=== PATIENT | male | born 1950 | race Caucasian/White ===

== ENCOUNTER 2017-07-28 16:55 | Emergency (ER) | payer MEDICARE, OTHER ==
[~2017-07-28] VITALS: Ht 182.9 cm; Wt 94.3 kg
[~2017-07-28 16:55] MED LIST: AMIT10 PO; AMITRIPTYLINE; ASPI81CH PO; CITA20 PO; CRUTCH2 USE; ENTRESTO 24 MG1 EACH; FISH1000 PO; FURO40 PO; Lisinopril2.5 MG PO; Lopressor 50 mg50 MG PO; METO25ER PO; MULTI FOR HER400 MCG PO; OXYACE5T PO; Prednisone20 MG PO; SPIR25 PO; Saw Palmetto80 MG PO; XARELTO15 MG PO
== END 2017-07-28 19:23 | disposition home or self-care (01) ==
LOC: ER 16:55
DX: S43.102A Unspecified dislocation of left acromioclavicular joint, initial encounter (principal); J44.9 Chronic obstructive pulmonary disease, unspecified; I48.91 Unspecified atrial fibrillation; Z88.8 Allergy status to other drugs, medicaments and biological substances; Z79.899 Other long term (current) drug therapy; Z79.82 Long term (current) use of aspirin; Z86.73 Personal history of transient ischemic attack (TIA), and cerebral infarction without residual deficits; Z87.891 Personal history of nicotine dependence; W22.8XXA Striking against or struck by other objects, initial encounter
CPT/HCPCS: 73030; 99283

== ENCOUNTER 2019-03-02 17:12 | Emergency (ER) | payer OTHER, MEDICARE ==
[~2019-03-02] VITALS: Ht 182.9 cm; Wt 96.2 kg
[2019-03-02 18:16] LABS: BASOPHILS ABSOLUTE AUTO 0.01 K/mm3 (0.00-0.23); BASOPHILS PERCENT AUTO 0 % (0-2); EOSINOPHILS ABSOLUTE AUTO 0.01 K/mm3 (0.00-0.68); EOSINOPHILS PERCENT AUTO 0 % (0-6); Hematocrit 34.7 % (37.0-53.0); Hemoglobin 11.7 g/dL (13.5-17.5); IMMATURE GRAN ABSOLUTE AUTO 0.02 K/mm3 (0.00-0.10); IMMATURE GRAN PERCENT AUTO 0 % (0-1); LYMPHOCYTES ABSOLUTE AUTO 1.09 K/mm3 (0.84-5.20); LYMPHOCYTES PERCENT AUTO 15 % (21-46); MONOCYTES ABSOLUTE AUTO 0.88 K/mm3 (0.16-1.47); MONOCYTES PERCENT AUTO 12 % (4-13); Mean Corpuscular HGB Conc 33.7 g/dL (31.5-36.5); Mean Corpuscular Volume 92 fL (80-100); Mean Platelet Volume 9.2 fL (9.1-12.4); NEUTROPHILS ABSOLUTE AUTO 5.24 K/mm3 (1.96-9.15); NEUTROPHILS PERCENT AUTO 72 % (41-73); Platelet Count 326 K/mm3 (150-400); RDW Coefficient Variation 12.2 % (11.7-14.2); RDW Standard Deviation 41.7 fL (35.1-46.3); Red Blood Cell Count 3.77 M/mm3 (4.30-5.90); White Blood Cell Count 7.25 K/mm3 (4.00-11.30)
[2019-03-02 18:31] LABS: International Normalized Ratio 1.24; Prothrombin Time Results 12.9 Sec (9.7-11.5)
[2019-03-02 18:36] LABS: Alanine Aminotransfer (ALT/SGP 29 U/L (12-78); Albumin, Blood 3.6 g/dL (3.4-5.0); Albumin/Globulin Ratio 0.9 (0.8-1.8); Alk Phos 114 U/L (50-136); Anion Gap 8 mmol/L (6-16); Aspartate Aminotrans (AST/SGOT 24 U/L (12-37); Bilirubin, Total 1.9 mg/dL (0.1-1.0); Blood Urea Nitrogen 23 mg/dL (8-24); Bun/Creatinine Ratio 20.2 (12.0-20.0); CO2, Blood 23 mmol/L (21-32); Calcium, Blood 8.2 mg/dL (8.5-10.1); Chloride, Blood 104 mmol/L (98-108); Creatinine, Blood 1.14 mg/dL (0.60-1.20); Glomerular Filtration Rate >60 (60-); Glucose, Blood 92 mg/dL (70-99); Sodium, Blood 135 mmol/L (136-145); Total Protein, Blood 7.6 g/dL (6.4-8.2)
== END 2019-03-02 19:32 | disposition home or self-care (01) ==
LOC: ER 17:12
PROVIDERS: Physician Assistant
DX: S06.9X9A Unspecified intracranial injury with loss of consciousness of unspecified duration, initial encounter (principal); S60.222A Contusion of left hand, initial encounter; S80.02XA Contusion of left knee, initial encounter; S05.12XA Contusion of eyeball and orbital tissues, left eye, initial encounter; S20.212A Contusion of left front wall of thorax, initial encounter; J44.9 Chronic obstructive pulmonary disease, unspecified; F32.9 Major depressive disorder, single episode, unspecified; I48.91 Unspecified atrial fibrillation; Z88.8 Allergy status to other drugs, medicaments and biological substances; I50.9 Heart failure, unspecified; Z79.82 Long term (current) use of aspirin; Z79.899 Other long term (current) drug therapy; Z79.01 Long term (current) use of anticoagulants; Z86.711 Personal history of pulmonary embolism; Z86.718 Personal history of other venous thrombosis and embolism; V20.4XXA Motorcycle driver injured in collision with pedestrian or animal in traffic accident, initial encounter
CPT/HCPCS: 36415; 70450; 70486; 71101; 73130; 73564; 80053; 85025; 85610; 85730; 99284-25

== ENCOUNTER 2019-07-31 14:36 | Day surgery (SDC) | payer MEDICARE, OTHER ==
[2019-07-31 16:41] LABS: Automated BF WBC Count 0.379 K/mm3 (0-999); Body Fluid WBC Count 379 /mm3 (0-999)
[2019-07-31 16:52] LABS: Albumin, Body Fluid 1.7 g/dL; Glucose, Body Fluid 102 mg/dL; Lactate Dehydrogenase, Body Fl 78 U/L; Protein, Body Fluid 3.5 g/dL
[2019-07-31 17:00] LABS: RBC Count, Body Fluid 145 /mm3 (0-0)
[2019-07-31 17:01] LABS: Color, Body Fluid Yellow (None-Yellow)
[2019-07-31 17:02] LABS: Appearance, Body Fluid Hazy (Clear)
[2019-07-31 17:23] LABS: Total Cell Count, Body Fluid 100
== END 2019-07-31 22:36 | disposition home or self-care (01) ==
LOC: US 14:36
PROVIDERS: Family Medicine
DX: J90 Pleural effusion, not elsewhere classified (principal)
CPT/HCPCS: 32555; 71045; 82042; 82945; 83615; 84157; 87070; 87205; 88108; 89051

== ENCOUNTER → 2019-08-05 | Outpatient (CLI) | payer MEDICARE, OTHER ==
[2019-08-05 17:56] LABS: Adenovirus F 40/41 Not Detected (NOT DETECT); Astrovirus Not Detected (NOT DETECT); Campylobacter Sp Not Detected (NOT DETECT); Cryptosporidium Not Detected (NOT DETECT); Cyclospora Cayetanensis Not Detected (NOT DETECT); E. Coli O157 Not Detected (NOT DETECT); Entamoeba Histolytica Not Detected (NOT DETECT); Enteroaggregative E. coli-EAEC Not Detected (NOT DETECT); Enteropathogenic E. coli-EPEC Not Detected (NOT DETECT); Enterotoxigenic E. coli-ETEC Not Detected (NOT DETECT); Giardia Lamblia Not Detected (NOT DETECT); Norovirus GI/GII Not Detected (NOT DETECT); Plesiomonas Shigelloides Not Detected (NOT DETECT); Rotavirus A Not Detected (NOT DETECT); Salmonella Sp Not Detected (NOT DETECT); Sapovirus Not Detected (NOT DETECT); Shiga Toxin-prod E. coli-STEC Not Detected (NOT DETECT); Shigella/Enteroin E. coli-EIEC Not Detected (NOT DETECT); Vibrio Cholerae Not Detected (NOT DETECT); Vibrio Sp Not Detected (NOT DETECT); Yersinia Enterocolitica Not Detected (NOT DETECT)
== END ==
LOC: LAB SHORT 12:20 → OLS 12:20
PROVIDERS: Internal Medicine Gastroenterology
DX: R19.7 Diarrhea, unspecified (principal)
CPT/HCPCS: 0097U

== ENCOUNTER 2019-08-08 09:23 | Day surgery (SDC) | payer MEDICARE, OTHER ==
[~2019-08-08] VITALS: Ht 182.9 cm; Wt 97.8 kg
--- NOTE | 2019-08-08 10:28 | NUR ---
Ambulatory in Day Surgery History, Chart, Medications and Allergies reviewed before start of procedure. Patient confirms NPO status and agrees with scheduled surgery. Patient States Post-Procedure ride home has been arranged.
--- NOTE | 2019-08-08 10:33 | NUR ---
PT IN AFIB WITH RVR, 120-140'S. DR CRUZ AND DR MARTELL AWARE. NEW ORDERS TO GIVE METOPROLOL 5MG IVP X1 THEN REASCESS. GOOD RELIEF WITH METROPROLOL IVP AND BOTH DR'S AGREE TO PROCEED.
--- NOTE | 2019-08-08 10:42 | NUR ---
08/08/19 1042 Shannan Crook History, Chart, Medications and Allergies reviewed before start of procedure.MAC CASE WITH DR. MARTELL. SEE ANETHESIA RECORD FOR CARE
--- NOTE | 2019-08-08 12:10 | NUR ---
Discharge instructions reviewed with patient. Patient verbalizes understanding. Copy given to patient to take home. Discharged via wheelchair to private car for ride home.
== END 2019-08-08 23:45 | disposition home or self-care (01) ==
LOC: ORSCMMR 09:23 → ORD 10:30 → ORSCMMR 10:30
PROVIDERS: Internal Medicine Gastroenterology
PROC: 0DBE8ZX Excision of Large Intestine, Via Natural or Artificial Opening Endoscopic, Diagnostic (ICD-10-PCS; principal; 2019-08-08 10:30)
PROC: 0DB98ZX Excision of Duodenum, Via Natural or Artificial Opening Endoscopic, Diagnostic (ICD-10-PCS; principal; 2019-08-08 10:30)
PROC: 0DB78ZX Excision of Stomach, Pylorus, Via Natural or Artificial Opening Endoscopic, Diagnostic (ICD-10-PCS; principal; 2019-08-08 10:30)
DX: K92.1 Melena (principal); R19.7 Diarrhea, unspecified; K29.80 Duodenitis without bleeding; K29.70 Gastritis, unspecified, without bleeding; K57.30 Diverticulosis of large intestine without perforation or abscess without bleeding; I10 Essential (primary) hypertension; I25.2 Old myocardial infarction; Z79.899 Other long term (current) drug therapy
CPT/HCPCS: 88305; 88342; J2370; J2405; J2704; J7120

== ENCOUNTER 2019-09-23 15:27 | Inpatient (IN) | payer MEDICARE, OTHER ==
[~2019-09-23] VITALS: Ht 182.9 cm; Wt 121.5 kg
[~2019-09-23 15:27] MED LIST changes: -ENTRESTO 24 MG1 EACH; +ENTRESTO 24 MG1 EACH PO; +FURO20 PO; -FURO40 PO
[2019-09-23 16:07] LABS: BASOPHILS ABSOLUTE AUTO 0.02 K/mm3 (0.00-0.23); BASOPHILS PERCENT AUTO 0 % (0-2); EOSINOPHILS ABSOLUTE AUTO 0.07 K/mm3 (0.00-0.68); EOSINOPHILS PERCENT AUTO 1 % (0-6); Hematocrit 41.1 % (37.0-53.0); IMMATURE GRAN ABSOLUTE AUTO 0.01 K/mm3 (0.00-0.10); IMMATURE GRAN PERCENT AUTO 0 % (0-1); LYMPHOCYTES ABSOLUTE AUTO 0.88 K/mm3 (0.84-5.20); LYMPHOCYTES PERCENT AUTO 16 % (21-46); MONOCYTES ABSOLUTE AUTO 0.55 K/mm3 (0.16-1.47); MONOCYTES PERCENT AUTO 10 % (4-13); Mean Corpuscular HGB 30.3 pg (26.0-34.0); Mean Corpuscular HGB Conc 31.6 g/dL (31.5-36.5); Mean Corpuscular Volume 96 fL (80-100); Mean Platelet Volume 10.3 fL (9.1-12.4); NEUTROPHILS ABSOLUTE AUTO 3.87 K/mm3 (1.96-9.15); NEUTROPHILS PERCENT AUTO 72 % (41-73); Platelet Count 259 K/mm3 (150-400); RDW Coefficient Variation 16.2 % (11.7-14.2); RDW Standard Deviation 57.2 fL (35.1-46.3); Red Blood Cell Count 4.29 M/mm3 (4.30-5.90)
[2019-09-23 16:27] LABS: Albumin, Blood 3.2 g/dL (3.4-5.0); Albumin/Globulin Ratio 0.6 (0.8-1.8); Bilirubin, Total 1.5 mg/dL (0.1-1.0); Bun/Creatinine Ratio 22.4 (12.0-20.0); Calcium, Blood 8.4 mg/dL (8.5-10.1); Creatinine, Blood 2.14 mg/dL (0.60-1.20); Globulin, Blood 5.4 g/dL (2.2-4.0); Potassium, Blood 4.1 mmol/L (3.5-5.5); Total Protein, Blood 8.6 g/dL (6.4-8.2); Troponin I 0.017 ng/mL (0.000-0.040)
[2019-09-23] MEDS ORDERED: ATOR10 PO (17:51)
--- NOTE | 2019-09-23 18:53 | NUR ---
ADMISSION PT TO BE ADMITTED TO ICU 14. CHART REVIEWED. ROOM SET UP FOR PATIENT. WILL GIVE REPORT FROM CHART TO ONCOMING RN TO CALL ER FOR REPORT ONCE AVAILABLE. CAREER TECHNICAL SUPERVISOR CARING FOR PATIENT AWARE AND AGREEABLE.
--- NOTE | 2019-09-23 19:37 | NUR ---
PT ARRIVES TO ICU 14 VIA GURNEY FROM ER, ADIMT FOR A-FIB WITH RVR, CELLULITIS, CHF EXACERBATION AND HYPOTENSION. PT IS ALERT AND ORIENTED X 3, SPEAKING IN FULL SENTENCES, DENIES DYSPNEA/SOB, DENIES CP/PRESSURE, DENIES DIZZINESS/VERTIGO AT THIS TIME WELL OVER THE LAST WEEK OTHER THAN 1 EPISODE AT WHICH TIME, HE WAS GETTING OUT OF A HOT SHOWER. HE ADMITS TO 6/10 PAIN TO BILATERAL LOWER EXTREMITIES THAT IS A BURNING/STINGING PAIN WITH AN ONSET 1-2 WEEKS AGO WHEN SKIN BLISTERS OPENED, PAIN IS REPORTED TO BE EXACERBATED BY "ANYTHING TOUCHING" PT'S LEGS. RESP RATE IS NOTED LOW 20-30S, LUNGS ARE CLEAR THROUGHOUT WITH DIM LUNG SOUNDS NOTED TO RIGHT BASE, SATS ARE MAINTAINING ON ROOM AIR. AFIB ON MONITOR, RATE 120-130S AT THIS TIME, PT'S PRESSURE IMPROVED DURING TRANSPORT TO 90S SYSTOLIC PER WAREHOUSE LOADER, HE IS NOTED TO CONTINUE TO BE HYPOTENSIVE AFTER TRANSFER TO BED, HOSPITALIST KYLE IS AT BEDSIDE FOR DISCUSSION OF PLAN OF CARE FOR HYPOTENSION IN THE SETTING OF FLUID OVERLOAD AND AFIB WITH RVR. NORMOACTIVE BOWEL TONES ARE NOTED, ABD SOFT, NO GRIMACING/GUARDING WITH PALPATION. BILATERAL LOWER EXTREMITIES ARE RED AND HOT TO THE TOUCH FROM ANKLES TO JUST BELOW KNEES BILAT (SEE PHOTOS) WITH 2 + EDEMA UP TO LEVEL OF PT'S LOW ABD. PLAN PER KYLE IS TO ADMINISTER LOPRESSOR 2.5 MG SLOW IV PUSH AND MONITOR BP CLOSELY, IF NO IMPROVEMENT IN BP, THEN ADMIN ALBUMIN AND MIDODRINE AND HOLD ON LASIX ADMINISTRATION UNTIL 30 MINUTES AFTER COMPLETION OF ALBUMIN INFUSION.
--- NOTE | 2019-09-23 20:08 | NUR ---
LOPRESSOR 2.5 MG DILUTED IN 20 ML NORMAL SALINE AND PUSHED OVER 30 MINUTES WHILE MONITORING BLOOD PRESSURE EVERY 2 MINUTES THROUGHOUT ADMINISTRATION. PT PRESSURE MAINTAINS THROUGHOUT HOWEVER NO IMPROVEMENT IS NOTED WITH IMPROVED RATE CONTROL. PHARMACY CALLED FOR ALBUMIN WILL ADMIN SOON IT ARRIVES FROM PHARMACY. MIDODRINE ADMIN. WILL MONITOR.
--- NOTE | 2019-09-23 22:10 | NUR ---
ALBUMIN INFUSION COMPLETE, HOSPITALIST KYLE REMAINS IN UNIT AND UPDATED REGARDING PT'S VITAL SIGNS, MANUAL BP OBTAINED FOR CONFIRMATION OF HYPOTENSION. PT'S RADIAL PULSES CONT FULL AND EQUAL BILAT, CONTINUES TO REMAIN ALERT AND ORIENTED AND DENIES DIZZINESS/VERTIGO, STATES THAT HE FEELS PRETTY GOOD AT THIS TIME.
--- NOTE | 2019-09-23 22:40 | NUR ---
KYLE UPDATED REGARDING CONTINUED VITAL SIGNS, LASIX ADMIN SLOW IV PUSH, PT TOLERATED WELL, NO IMPROVEMENT IN BP IS NOTED.
--- NOTE | 2019-09-23 23:00 | NUR ---
DISCUSSED CONCERN REGARDING PT'S HYPOTENSION AND LACK OF URINE OUTPUT OF THIS TIME WITH HOSPITALIST KYLE, ORDER FOR CARPIO OBTAINED. 14 [place] CARPIO INSERTED USING STERILE TECHNIQUE, UA SENT, 120 ML CLOUDY COLTON URINE DRAINED IN UROMETER, WILL MONITOR.
[2019-09-23 23:36] LABS: Source, Urine Catheter
[2019-09-23 23:37] LABS: Bilirubin, Urine Neg (Neg); Blood, Urine Neg (Neg); Glucose Qualitative, Urine Neg (Neg); Ketones, Urine Neg (Neg); Leukocyte Esterase, Urine 1+ (Neg); Nitrite, Urine Neg (Neg); Protein, Urine 3+ (Neg); Urobilinogen, Urine NORM (Normal)
[2019-09-23 23:46] LABS: Appearance, Urine Hazy (Clear); Color, Urine Amber (P-Yellow)
[2019-09-23 23:55] LABS: Amorphous Light (0-Heavy); Bacteria Many /hpf; Hyaline Casts 25-50 /lpf (0-2); Mucus Light (0-Heavy); Red Blood Cells, Urine 0-2 /hpf (0-2); Squamous Epithelial Cells Not Seen /hpf (Few)
--- NOTE | 2019-09-24 00:10 | NUR ---
PT C/O INCREASED DISCOMFORT FROM CARPIO CATHETER, STATES THAT IT FEELS "LIKE I'M TRYING TO PUSH IT OUT" BALLOON DEFLATED AND PT REPORTS RELIEF, PT REQUESTS CARPIO CATH BE REMOVED AND REPLACED. ORDERS OBTAINED FOR UROJET LIDOCAINE. CARPIO REPLACED WITH 14 [place] COUDE CATHETER USING UROJET LIDOCAINE, PT TOLERATED WELL. WILL MONITOR.
[2019-09-24 01:13] LABS: Hematocrit 40.5 % (37.0-53.0); Hemoglobin 12.8 g/dL (13.5-17.5); Mean Corpuscular HGB 30.3 pg (26.0-34.0); Mean Corpuscular HGB Conc 31.6 g/dL (31.5-36.5); Mean Corpuscular Volume 96 fL (80-100); Mean Platelet Volume 10.1 fL (9.1-12.4); Platelet Count 244 K/mm3 (150-400); RDW Coefficient Variation 16.2 % (11.7-14.2); RDW Standard Deviation 57.4 fL (35.1-46.3); Red Blood Cell Count 4.23 M/mm3 (4.30-5.90); White Blood Cell Count 5.36 K/mm3 (4.00-11.30)
[2019-09-24 01:33] LABS: Albumin, Blood 3.3 g/dL (3.4-5.0); Albumin/Globulin Ratio 0.6 (0.8-1.8); Bun/Creatinine Ratio 22.1 (12.0-20.0); Calcium, Blood 8.6 mg/dL (8.5-10.1); Creatinine, Blood 2.31 mg/dL (0.60-1.20); Globulin, Blood 5.3 g/dL (2.2-4.0); Total Protein, Blood 8.6 g/dL (6.4-8.2); Troponin I 0.024 ng/mL (0.000-0.040)
--- NOTE | 2019-09-24 05:00 | NUR ---
SPOKE WITH DR BAIRES REGARDING PT'S URINE OUTPUT, SYSTOLIC PRESSURE TRENDS WELL MAP. PT CONTINUES ALERT AND ORIENTED AND DENYING DIZZINESS/VERTIGO, CP/PRESSURE, SOB/DYSPNEA AND MAINTAINING SATS ON ROOM AIR WITHOUT VISIBLE INCREASED WORK OF BREATHING. ORDERS OBTAINED FOR NORMAL SALINE AT 75 ML/HR X 500 ML.
--- NOTE | 2019-09-24 08:00 | NUR ---
ASSUMED CARE RECIEVED REPORT FROM PRATEEK JIMENEZ. PT IS ALERT AND ORIENTED TO SELF, SITUATION, PLACE, AND TIME. HE IS IN BED, DENIES CP AND SOB. HE IS ON ROOM AIR, SAT'ING MID 90'S. PT IS IN AFIB RVR, RATE IS 120-140. DENIES COUGH THROUGHOUT NIGHT, AND IS AFEBRILE. BED LOW AND LOCKED. CALL LIGHT WITHIN REACH.
--- NOTE | 2019-09-24 13:48 | NUR ---
CALVIN/UPDATE JEB IN ROOM AND INTERVIEWED/ASSESSED PATIENT. CARDIOVERSION SCHEDULED AT 1400, PT UNDERSTANDING OF RISKS AND BENEFITS - CONSENTED TO PROCEDURE. LEVOPHED AND SEDATION WILL BE AVAILABLE ON STANDBY.
--- NOTE | 2019-09-24 17:28 | NUR ---
Echocardiogram using 0.60ml of Definity contrast performed.
[2019-09-24 17:42] LABS: International Normalized Ratio 1.67; Prothrombin Time Results 17.4 Sec (9.7-11.5)
--- NOTE | 2019-09-24 18:04 | NUR ---
CARDIOVERSION/HYPOTENSION/SHIFT SUMMARY CARDIOVERSION/HYPOTENSION TODAY PT HAS BEEN HAVING LOW BLOOD PRESSURES, BUT MAP HAS MAINLY BEEN 60+ WITH A FEW IN THE UPPER 50'S. HE ALSO HAS BEEN IN AFIB FOR A FEW MONTHS NOW AND HAS BEEN PUT ON XARLTO. RATE IN THE 120-140, MAINLY 130'S. PT IS OLIGURIC (~120-160ML TODAY), WITH INCREASING CREATININE AND BUN. MENTATION HAS HAD NO CHANGES, AND HE HAS BEEN A&O TO PERSON, PLACE, TIME, AND SITUATION. DR RUSS SAW PT TODAY AND PLANNED TO DO A CARDIOVERSION AT 1400 TO IMPROVE CARDIAC OUTPUT/BLOOD PRESSURE. THE PROCEDURE STARTED AT 1410, LEVOPHED WAS TURNED ON TO 5MCG/MIN AT 1413 TO PROVIDE SUPPORT DURING CONSCIOUS SEDATION. SEE FLOWSHEET FOR TITRATIONS AND VS FOR ASSOCIATED BP'S. A TOTAL OF 2.5MG VERSED, 25MCG FENT, AND 6 ML OF LEVO WERE GIVEN FOR THE PROCEDURE. AT 1429 THE PT WAS CARDIOVERTED INTO A SINUS RHYTHM WITH ECTOPY WITH 200J. LEVO WAS PUT ON STANDBY AT 1432. RATE BACOME STABLE IN THE 90'S. THE CAT BREEDER CAME IN AT 1445~; AND LEVO WAS TURNED BACK ON AT 1457 DUE TO THE MAP < 65 DESPITE THE RATE CONTROL. AT BEDSIDE JEB WAS CONCERNED THERE MAY BE SOMETHING MORE THAN JUST THE AFIB RVR STRESSING THE HEART OUT. POSSIBLY RELATED TO THE LEG WOUNDS, OR A SYSTEMIC INFLAMM. RESPONSE OF SOME SORT. BRODERICK BELIEVES ITS NOT RELATED TO LEG WOUNDS/SIRS/SEPSIS, AND HAS ORDERED DOBUTAMINE, BUT JEB REQUESTS THAT WE HOLD IT UNLESS WE ABSOLUTELY NEED TO BECAUSE OF THE ARRHYTHMOGENICITY OF THE MEDICATION AND THE FACT HE IS HAVING TONS OF ECTOPY AND TRYING TO GO BACK INTO AFIB. HE WAS LOADED UP ON AMIO PO AND CURRENTLY REMAINS IN SINUS RHYTHM WITH ECTOPY. LEVOPHED IS ON 4MCG/MIN. EXTREMETIES ARE WARM, DOPPABLE PEDAL PULSES (VERY FAINT ON PALPATION), FEET WERE MUCH MORE RED THIS MORNING, BUT THE ERYTHEMA HAS RECEEDED AND IS PRIMARILY JUST AROUND THE WOUNDS ON THE SHINS. RADIAL PULSES ARE PALPABLE. FEET ARE DRY, BUT WOUNDS HAVE TISSUE SLOUGHING OFF. PT HAS DIFFICULTY WHEN VOIDING, DESPITE HAVING A CARPIO CATHETER. HE FEELS PRESSURE, AND LOOKS TO BE IN PAIN. A RENAL/BLADDER US WAS PERFORMED. RESULTS PENDING. PT REMAINS ALERT AND ORIENTED. BED IS LOW AND LOCKED. CALL LIGHT WITHIN REACH. HE IS AFEBRILE, WITHOUT A COUGH, AND HAS DENIED CP, SOB, NAUSEA, AND ANY DISCOMFORT (ASIDE WHEN PEEING, AND HIS LEG WOUNDS).
--- NOTE | 2019-09-24 20:00 | NUR ---
ASSUMPTION OF CARE: PT A&O, AWAKE DURING SHIFT REPORT. PT HAS BEEN HYPOTENSIVE WITH BP IN THE 60-80S. WAS IN AFIB W/RVR-WAS CARDIOVERTED DURING DAYSHIFT. SBP IS CURRENTLY IN THE 80-100S, HR IN THE 90S. IN SR. LUNG SOUNDS ARE CLEAR AND DIM IN BASES. SPO2 >90% ON RA. POWERGLIDE IN PLACE IN DAVID. PIV IN LAC. CARPIO IN PLACE DRAINING MINIMAL AMOUNT OF DARK COLTON URINE. LEVOPHED IS CURRENTLY INF AT 4MCG. HEPARIN INFUSING AT 13U/KG (DOSING WT 89 KG). PT HAS WOUNDS TO BILAT LES. OPEN ULCERATIONS, OOZING SANGIOUNESS FLUID-CURRENTLY COVERED WITH PINK MEPILEX. BLE ARE A REDDISH COLOR. PEDAL PULSES ARE PALPABLE BUT FAINT. PT COMPLAINS OF SLIGHT LE PAIN. BED IN LOWEST POSITION, CALL LIGHT IN HAND, WILL CONTINUE TO MONITOR
[2019-09-25 03:56] LABS: BASOPHILS ABSOLUTE AUTO 0.02 K/mm3 (0.00-0.23); BASOPHILS PERCENT AUTO 0 % (0-2); EOSINOPHILS ABSOLUTE AUTO 0.02 K/mm3 (0.00-0.68); EOSINOPHILS PERCENT AUTO 0 % (0-6); Hematocrit 39.5 % (37.0-53.0); Hemoglobin 12.5 g/dL (13.5-17.5); IMMATURE GRAN ABSOLUTE AUTO 0.01 K/mm3 (0.00-0.10); IMMATURE GRAN PERCENT AUTO 0 % (0-1); LYMPHOCYTES ABSOLUTE AUTO 0.84 K/mm3 (0.84-5.20); LYMPHOCYTES PERCENT AUTO 13 % (21-46); MONOCYTES ABSOLUTE AUTO 0.81 K/mm3 (0.16-1.47); MONOCYTES PERCENT AUTO 12 % (4-13); Mean Corpuscular HGB 30.2 pg (26.0-34.0); Mean Corpuscular HGB Conc 31.6 g/dL (31.5-36.5); Mean Corpuscular Volume 95 fL (80-100); Mean Platelet Volume 10.2 fL (9.1-12.4); NEUTROPHILS ABSOLUTE AUTO 5.04 K/mm3 (1.96-9.15); NEUTROPHILS PERCENT AUTO 75 % (41-73); Platelet Count 256 K/mm3 (150-400); RDW Coefficient Variation 16.1 % (11.7-14.2); RDW Standard Deviation 55.9 fL (35.1-46.3); Red Blood Cell Count 4.14 M/mm3 (4.30-5.90); White Blood Cell Count 6.74 K/mm3 (4.00-11.30)
[2019-09-25 04:19] LABS: Alanine Aminotransfer (ALT/SGP 12 U/L (12-78); Albumin, Blood 3.1 g/dL (3.4-5.0); Albumin/Globulin Ratio 0.7 (0.8-1.8); Alk Phos 162 U/L (50-136); Anion Gap 10 mmol/L (6-16); Aspartate Aminotrans (AST/SGOT 18 U/L (12-37); Bilirubin, Total 1.8 mg/dL (0.1-1.0); Blood Urea Nitrogen 55 mg/dL (8-24); Bun/Creatinine Ratio 23.8 (12.0-20.0); CO2, Blood 16 mmol/L (21-32); Calcium, Blood 8.5 mg/dL (8.5-10.1); Chloride, Blood 112 mmol/L (98-108); Creatinine, Blood 2.31 mg/dL (0.60-1.20); Globulin, Blood 4.7 g/dL (2.2-4.0); Glomerular Filtration Rate 30 (60-); Glucose, Blood 89 mg/dL (70-99); Potassium, Blood 5.1 mmol/L (3.5-5.5); Prostate Specific Antigen 0.661 ng/mL (0.000-4.000); Sodium, Blood 138 mmol/L (136-145); Total Protein, Blood 7.8 g/dL (6.4-8.2)
--- NOTE | 2019-09-25 06:28 | NUR ---
SUMMARY: PT RESTED COMFORTABLY MAJORITY OF NIGHT. SBP IN THE 90S-110S, TACHY IN THE 100S. SPO2 >90% ON RA. LUNG SOUNDS CLEAR. POWERGLIDE IN DAVID AND PIV IN LAC. HEPARIN INFUSING AT 14U/KG. DOSING WT IS 89KG. CARPIO IN PLACE. PT HAD A LITTLE MORE URINE OUTPUT THEN DAYSHIFT. URINE REMAINS DARK COLTON COLOR. WILL PASS REPORT TO ONCOMING SHIFT
--- NOTE | 2019-09-25 09:40 | NUR ---
Received report from Laith CHANDRA. patient was awake in bed and able to communicate his needs. He is on RA and sats 94%. Dr Live in and did AM EKG for her and she wrote orders for new meds that were given with 0900 meds and he tolerated well with sips of water. Medicated for pain for am LE dressing changes and cleaning. He Has 18ga PowerGlide in DAVID and is recieving Levophed at 4 mcg/min and NS TKO. He also has 20 ga LAC IV dressing intact and site WNL's and is infusing Heparin at 14 units/kg/hr. He has Thora today and awaiting scheduled time.
--- NOTE | 2019-09-25 11:30 | NUR ---
Patient has been resting. Systolic dropped to the 80's after starting new meds and needed to increase to 7mcg/min for systolic now 100's. He has been tolerating meds with sips of water. Dr. Live call to check on patient and updated her on increase of Levo.
--- NOTE | 2019-09-25 13:36 | NUR ---
No significant changes with patient called and re-ordered thora as there was a confusion on whom was ordering. VSS, See EMR. Levophed at 7mcg/min, Heparin at 14units/kg/hr.
--- NOTE | 2019-09-25 18:38 | NUR ---
Patient has been resting in bed most of sday. He states he cant believe how weak he is just from laying around. He has tolerated a heart healthy dinner. His thira was done by [facility] and samples sent to lab and approx. 1000ml off. He tolerates meds with water. Leg dressings changes this am. Heparin running at 15 units/kg/hr, Levophed at 7 mcg/min, and Ancef at 100ml/hr. Levophed remains on while transitioning new meds Hydralazine and imdur at small doses.
[2019-09-25 18:43] LABS: Automated BF WBC Count 0.168 K/mm3 (0-999); Body Fluid WBC Count 168 /mm3 (0-999)
[2019-09-25 18:48] LABS: pH, Body Fluid 7.5
[2019-09-25 18:55] LABS: Albumin, Body Fluid 1.3 g/dL; Glucose, Body Fluid 95 mg/dL; Lactate Dehydrogenase, Body Fl 70 U/L; Protein, Body Fluid 2.8 g/dL
[2019-09-25 19:39] LABS: RBC Count, Body Fluid 258 /mm3 (0-0)
[2019-09-25 19:45] LABS: Total Cell Count, Body Fluid 100
[2019-09-25 19:46] LABS: Color, Body Fluid Yellow (None-Yellow)
[2019-09-25 19:47] LABS: Appearance, Body Fluid Clear (Clear)
--- NOTE | 2019-09-25 20:00 | NUR ---
ASSUMPTION OF CARE: PT A&0. BP ARE SOFT, SBP IN THE 80S-90S. HR IN THE 90S. LUNG SOUNDS CLEAR. SPO2 >90% ON RA. PT HAS PIV IN LAC AND POWERGLIDE IN DAVID. LAC IV INFUSING WITH LEVOPHED AT 7MCG AND POWERGLIDE INFUSING WITH HEPARIN AT 17U/KG. CARPIO IN PLACE DRAINING DARK COLTON URINE. BLE SLIGHTLY RED. ULCERATED WOUNDS ARE COVERED WITH MEPILEX AND ARE C/D/I. BED IN LOWEST POSITION, CALL LIGHT IN REACH. WILL CONTINUE TO MONITOR
--- NOTE | 2019-09-25 22:00 | NUR ---
RAC IV PULLED THAT WAS INFUSING WITH LEVOPHED. CALL PLACED TO DR. VILLAFANA RE STARTING A LINE. D/T HEPARIN INFUSION/BOLUS DR VILLAFANA UNABLE TO PLACE LINE. WILL REASSESS LATER ON TOMORROW. IV IN DAVID PLACED BY PRATEEK ROCKWELL. PATENT AND INFUSING WITH LEVOPHED. OK PER DR. VILLAFANA
[2019-09-26 01:42] LABS: BASOPHILS ABSOLUTE AUTO 0.03 K/mm3 (0.00-0.23); BASOPHILS PERCENT AUTO 0 % (0-2); EOSINOPHILS ABSOLUTE AUTO 0.07 K/mm3 (0.00-0.68); EOSINOPHILS PERCENT AUTO 1 % (0-6); Hematocrit 39.1 % (37.0-53.0); Hemoglobin 12.6 g/dL (13.5-17.5); IMMATURE GRAN ABSOLUTE AUTO 0.02 K/mm3 (0.00-0.10); IMMATURE GRAN PERCENT AUTO 0 % (0-1); LYMPHOCYTES ABSOLUTE AUTO 0.84 K/mm3 (0.84-5.20); LYMPHOCYTES PERCENT AUTO 12 % (21-46); MONOCYTES ABSOLUTE AUTO 0.73 K/mm3 (0.16-1.47); MONOCYTES PERCENT AUTO 11 % (4-13); Mean Corpuscular HGB 30.2 pg (26.0-34.0); Mean Corpuscular HGB Conc 32.2 g/dL (31.5-36.5); Mean Corpuscular Volume 94 fL (80-100); NEUTROPHILS ABSOLUTE AUTO 5.16 K/mm3 (1.96-9.15); NEUTROPHILS PERCENT AUTO 75 % (41-73); Platelet Count 265 K/mm3 (150-400); RDW Coefficient Variation 15.9 % (11.7-14.2); RDW Standard Deviation 54.8 fL (35.1-46.3); Red Blood Cell Count 4.17 M/mm3 (4.30-5.90); White Blood Cell Count 6.85 K/mm3 (4.00-11.30)
[2019-09-26 01:59] LABS: Albumin, Blood 2.9 g/dL (3.4-5.0); Albumin/Globulin Ratio 0.6 (0.8-1.8); Bilirubin, Total 1.2 mg/dL (0.1-1.0); Bun/Creatinine Ratio 25.5 (12.0-20.0); Calcium, Blood 8.6 mg/dL (8.5-10.1); Creatinine, Blood 2.08 mg/dL (0.60-1.20); Globulin, Blood 4.5 g/dL (2.2-4.0); Magnesium, Blood 1.9 mg/dL (1.6-2.4); Potassium, Blood 4.8 mmol/L (3.5-5.5); Total Protein, Blood 7.4 g/dL (6.4-8.2)
--- NOTE | 2019-09-26 06:39 | NUR ---
SHIFT SUMMARY: PT A&O. SLEPT T/O SHIFT. SOME COMPLAINTS OF BLE PAIN. LUNG SOUNDS ARE CLEAR. SPO2 >90% ON RA. PT DID REQUIRE 1L NC WHILE SLEEPING D/T DESAT TO 89%. PT HAS REMAINED HYPOTENSIVE WITH SBP 90-100S. HR IN THE 90S. PT HAD A RUN OF VTACH AT 0420 AM. PT CURRENTLY BACK IN SR WITH OCC PVCS. CARPIO IN PLACE WITH ABOUT 250SMLS OF DARK YELLOW URINE OUT. BLE HAVING WEEPING ULCERS. DRESSING IS C/D/I. PG IN DAVID INFUSING WITH HEPARIN AT 16U/KG. DOSING WT IS 89KG. PIV IN SALINAS IS INFUSING WITH LEVOPHED AT 5MCG. PT DID NOT HAVE ANY COMPLAINTS T/O NIGHT. WILL PASS REPORT TO ONCOMING SHIFT
--- NOTE | 2019-09-26 08:45 | NUR ---
AM NOTE... ASSUMED CARE OF PT APROX 0700. PT IS A&Ox4. PT WAS HYPOTENSIVE AT 79/65, LEVOPHED AT 4, THIS WAS INCREASED TO 5, LEVOPHED IS RUNNING PERIPHERALLY INTO THE LEFT FOREARM, PT'S PIV IN THE LEFT FOREARM IS RUNNING WELL WITH GOOD BLOOD RETURN, WILL CONTINUE TO MONITOR. PT HAS TOLERATED THIS WELL. HEPARIN GTT RUNNING PER ORDERS AT 89KG, 16U/KG/HR. PT IS IN SR W/PACS IN THE 80'S-100'S. L/S CLEAR T/O PT IS ON RA. BLE ARE RED WITH DRESSINGS INTACT AT THIS TIME. PT CURRENTLY DENIES ANY CHEST PAIN/PRESSURE N/V OR SOB. CALL LIGHT IN REACH WILL CONTINUE TO MONITOR.
--- NOTE | 2019-09-26 14:45 | NUR ---
PHYSICIAN NOTIFICATION- PT HYPOTENSIVE, DOBUTAMINE AT 2.5 MCG/KG/MIN, INCREASING LEVOPHED FOR SBP BUT 60-70'S. PT AWAKE, ALERT, SKIN W/D, COLOR FEET DARKER, DENIES ANY COMPLAINTS. NO PAIN OR SOB. UO MINIMAL. NOTIFIED DR. RUSS OF PT'S STATUS. DOBUTAMINE TO INCREASE TO 5 MCG/KG/MIN, INCREASE LEVOPHED NEEDED.
--- NOTE | 2019-09-26 15:19 | NUR ---
PT UDATE... APROX 1300 CARDIOLOGY CALLED TO CHECK ON THE PT'S CURRENT BP. PT IS LEVOPHED AT 6 WITH SBP 70'S-80'S. PROVIDER ORDER DOBUTAMINE TO START AT 2.5. ORDERS WERE PLACE. PT WAS UPDATED ON THE PLAN OF CARE. DOBUTAMINE WAS STARTED AT 2.5 PT'S BP DROPPED INTO THE SBP 60'S-70'S. PROVIDER WAS NOTIFIED AGAIN NEW ORDERS TO INCREASE DOBUTAMINE TO 5 WERE GIVEN. LEVOPHED IS CURRENTLY AT 12. PT IS AWAKE AND ALERT, RR EVEN AND UNLABORED IN THE 20'S. L/S CLEAR T/O DIM IN THE BASES. WILL CONTINUE TO MONITOR.
--- NOTE | 2019-09-26 15:30 | NUR ---
PHYSICIAN NOTIFY- UPDATE TO DR. VILLAFANA REGARDING PT STATUS, ARTERIAL LINE REQUEST. SPOKE WITH DR. RUSS. INCREASING LEVOPHED TO 16 MCG/MIN-SBP 86 NOW. NEURO UNCHANGED. BLADDER SCAN DONE-URINE PRESENT. PLANS FOR DR. LOUIS TO PLACE RADIAL LINE
--- NOTE | 2019-09-26 17:32 | NUR ---
PT AWAKE, ALERT, COOPERATIVE. DENIES ANY PAIN OR SOB. SBP 90'S VIA RIGHT RADIAL TIANA. LEVOPHED TITRATING DOWN-12 MCG/MIN NOW. DOBUTAMINE AT 5 MCG/KG/MIN. UO REMAINS LOW-ABDOMEN, TIRSO AREA SWOLLEN, EDEMATOUS. CARPIO IRRIGATED WITH RETURN OF IRRIGANT, URINE YELLOW, SCANT SEDIMENT. RIGHT PICC-SITE OOZING, COBAN APPLIED. FEET REDDENED, DRSGS INTACT. DENIES ANY PAIN IN LEGS. REPOSITIONED, ABLE TO ASSIST WITH TURNING.
--- NOTE | 2019-09-26 18:14 | NUR ---
SHIFT SUMMARY... ART LINE WAS PLACED IN THE PT TODAY, ART LINE BP RESULTS WERE THE SAME THE BP CUFF RESULTS. PT IS ON DOBUTAMINE AT 5 AND LEVOPHED AT 14 WITH SBP IN THE 80'S. PT TOLERATED THE PROCEDURE WELL. PT IS IN SR W/PACS IN THE 90'S. CARPIO IS PATENT AND DRAINING TO GRAVITY CLOUDY YELLOW URINE. TOTAL OUTPUT TODAY WAS 205MLS. HEPARIN GTT RUNNING PER ORDERS AT 89KG DOSE WT, 16U/KG/HR AT 28.5MLS/HR. PT HAS BEEN AWAKE AND ALERT T/O SHIFT AND IN GOOD SPIRITS. CALL LIGHT IN REACH WILL CONTINUE TO MONITOR UNTIL REPORT IS GIVEN TO ONCOMING RN.
--- NOTE | 2019-09-26 18:47 | NUR ---
HEARTRATE 90-100'S, CARDIZEM OFF.
--- NOTE | 2019-09-26 19:54 | NUR ---
ASSUMPTION OF CARE: PT IS AWAKE AT THIS TIME AND TALKING ON THE PHONE. IS A&O. IN SR WITH OCC PACS AND PVCS. HYPOTENSIVE ON LEVOPHED AT 14MCG, DOBUTAMINE AT 5MCG. GOAL IS TO KEEP SBP >85. ON RA, SPO2 >90%. R RADIAL ART LINE IS SUTURED IN PLACE AND WRAPPED WITH COBAN. DRESSING IS C/D/I. PULSE OX MONITOR PLACED ON R POINTER FINGER. CAP REFILL TO R THUMB <3SEC, R HAND IS WARM AND PINK TO THE TOUCH, AND PT HAS GOOD SENSATION. PICC LINE TO DAVID. SITE IS A LITTLE LEAKY BUT DRESSING IS STILL INTACT. ALONG WITH LEVOPHED AND DOBUTAMINE INFUSING, PT ALSO HAS NS AT TKO AND HEPARIN AT 16UNITS. DOSING WEIGHT FOR HEPARIN IN 89KG. DOSING WEIGHT FOR DOBUTAMINE IS 105KG. PT HAS CARPIO IN PLACE. STILL NOT MUCH OUTPUT ABOUT 200MLS DURING DAYSHIFT. HOWEVER, URINE IS MEDICAID ANALYST IN COLOR. BLE REDDISH IN COLOR. DRESSINGS TO LEG ULCERATIONS IS C/D/I. WILL CONTINUE TO MONITOR. BED IS IN LOWEST POSITION. CALL LIGHT IN REACH.
--- NOTE | 2019-09-26 21:36 | NUR ---
DR. RUSS NOTIFIED DR. RUSS OF PT'S STATUS; THAT LEVOPHED IS AT 15MCG/MIN AND THAT DOBUTAMINE IS AT 5MCG/KG/MIN AND THAT BP IS 80'S/50'S. DR. RUSS STATED THAT SHE WOULD D/C THE HYDRALAZINE AND THE IMDUR. SHE WANTS THE DOBUTAMINE INCREASED TO 7.5MCG/KG/MIN AND TO NOT TITRATE IT. SHE WANTS THE LEVOPHED TO BE TITRATED DOWN IF POSSIBLE.
--- NOTE | 2019-09-27 03:32 | NUR ---
PT SLEEPING MAJORITY OF SHIFT. PICC LINE DRESSING CHANGE DONE AND REMAINS C/D/I-NO LEAKING OR OOZING. RADIAL ART LINE DRESSING C/D/I. PULSE OX REMAINS ON R POINTER FINGER. SPO2 >90%. R HAND POINTER AND THUMB FINGERS ARE DRY, WARM, PINK. CAP REFILL <3SEC. NO COMPLAINTS OF LOSS OF SENSATION. LEVOPHED HAS BEEN TITRATED DOWN TO 13MCG AND DOBUTAMINE REMAINS AT 7.5. SBP HAS BEEN >85. CARPIO IN PLACE DRAINING DARK YELLOW URINE. WILL CONTINUE TO MONITOR
[2019-09-27 05:23] LABS: BASOPHILS ABSOLUTE AUTO 0.02 K/mm3 (0.00-0.23); BASOPHILS PERCENT AUTO 0 % (0-2); EOSINOPHILS ABSOLUTE AUTO 0.07 K/mm3 (0.00-0.68); EOSINOPHILS PERCENT AUTO 1 % (0-6); Hematocrit 34.5 % (37.0-53.0); IMMATURE GRAN ABSOLUTE AUTO 0.01 K/mm3 (0.00-0.10); IMMATURE GRAN PERCENT AUTO 0 % (0-1); LYMPHOCYTES ABSOLUTE AUTO 0.72 K/mm3 (0.84-5.20); LYMPHOCYTES PERCENT AUTO 14 % (21-46); MONOCYTES PERCENT AUTO 11 % (4-13); Mean Corpuscular HGB 29.8 pg (26.0-34.0); Mean Corpuscular HGB Conc 31.9 g/dL (31.5-36.5); Mean Corpuscular Volume 94 fL (80-100); Mean Platelet Volume 10.7 fL (9.1-12.4); NEUTROPHILS ABSOLUTE AUTO 3.92 K/mm3 (1.96-9.15); NEUTROPHILS PERCENT AUTO 73 % (41-73); Platelet Count 221 K/mm3 (150-400); RDW Coefficient Variation 15.9 % (11.7-14.2); RDW Standard Deviation 54.2 fL (35.1-46.3); Red Blood Cell Count 3.69 M/mm3 (4.30-5.90); White Blood Cell Count 5.34 K/mm3 (4.00-11.30)
--- NOTE | 2019-09-27 05:28 | NUR ---
SUMMARY: NO ACUTE CHANGES T/O SHIFT SINCE LAST NOTE. BP REMAINED STABLE. LEVOPHED DOWN TO 12 AND SBP HAS BEEN >85. DOBUTAMINE REMAINS AT 7.5. CURRENTLY IN SR. PT HAD A 3 BEAT RUN OF VTACH, PT NOT SYMPTOMATIC. 125MLS OF URINE OUT ENTIRE SHIFT. OVERALL PT HAD NO COMPLAINTS. WILL PASS REPORT ON TO ONCOMING SHIFT.
[2019-09-27 05:55] LABS: Albumin, Blood 2.5 g/dL (3.4-5.0); Albumin/Globulin Ratio 0.6 (0.8-1.8); Bilirubin, Total 0.8 mg/dL (0.1-1.0); Calcium, Blood 7.8 mg/dL (8.5-10.1); Creatinine, Blood 2.24 mg/dL (0.60-1.20); Globulin, Blood 4.3 g/dL (2.2-4.0); Potassium, Blood 4.2 mmol/L (3.5-5.5); Total Protein, Blood 6.8 g/dL (6.4-8.2)
--- NOTE | 2019-09-27 06:23 | NUR ---
DR RUSS AT BEDSIDE WITH PT THIS AM. PLAN IS TO KEEP DOBUTAMINE AT 7.5 AND CONTINUE TO TITRATE DOWN LEVOPHED TOLERATED.
--- NOTE | 2019-09-27 11:31 | NUR ---
REASSESSMENT: PT HAS BEEN RESTING IN BED THROUGHOUT THE MORNING. HE REAMISN ALERT AND ORIENTED. LUNGS CLEAR, RA. SR WITH PACS, BP STABLE ON LEVOPHED AND DOBUTAMINE, BUT HAVE NOT BEEN ABLE TO TITRATE LEVOPHED DOWN AT ALL. ART LINE SITE ON R WRIST IS C/D/I. DRESSING ON LEG WOUNDS CHANGED. ULCERS ARE OPEN, PINK TISSUE AT WOUDN BEDS. SS DRAINAGE. CLEANED WOUNDS THEN APPLIED NEW MEPILEX BANDAGES. NO OTHER REQUESTS FROM PT AT THIS TIME. CONTINUE TO MONITOR.
--- NOTE | 2019-09-27 17:29 | NUR ---
SHIFT SUMMARY: PT HAS BEEN RESTING IN BED THROUGHOUT THE DAY. HIS BP CONTINUES TO REQUIRE PRESSORS TO KEEP IT UP. LEVOPHED TITRATED UP TO 15MCG/MIN THIS AFTERNOON, SEE FLOWSHEET. LUNGS REMAIN CLEAR, ON RA. UO SLIGHTLY INCREASED WITH 290ML OUT. PT EATING WELL. RADIAL ART LINE C/D/I. CONTINUING TO MONITOR.
--- NOTE | 2019-09-27 20:30 | NUR ---
SHIFT ASSESSMENT BED SIDE REPORT RECIEVED FROM OFF GOING RN. PT IS ALERT AT THIS TIME. HE HAS NO COMPLAINTS AT THIS TIME. STATES HE FEELS GOOD WITH NO COMPLAINTS OF CHEST PAIN. HE HAS NO SOB AT REST. HE DOES NOT WANT TO BE TURNED AT THIS TIME. VITALS ARE STABLE AT THIS TIME. ART LINE TO RIGHT WRIST IS PATENT AND NON-TENDER. DRESSING CDI. WILL CON'T TO MONITOR ART LINE T/O SHIFT. PICC TO RIGHT UPPER ARM PATENT AT THIS TIME. DRESSING CDI. LEVOPHED GTT RUNNING 10MCG AT THIS TIME. DOBUTAMINE GTT AT 7.5ML. SEE EMAR FOR TITRATIONS. HEP GTT RUNNING AT 15.5 UNITS. NS AT TKO. CARPIO CATH IN PLACE AND DRAINING DARK YELLOW URINE. WILL CLOSELY MONITOR OUTPUT. OVERALL PT SEEMS VERY PLESANT AND COOPERATIVE WITH HIS CARE. CALL LIGHT IN REACH.
--- NOTE | 2019-09-28 01:13 | NUR ---
ASSESSMENT PT CON'T TO BE STABLE. ART LINE TO RIGHT WRIST CDI AND PATENT. PT IS RESTING WELL AT THIS TIME. HE DOES SEEM A BIT RESTLESS AT TIMES. HE CON'T TO DENY PAIN. NO CHANGES TO GTT RATES AT THIS TIME. WILL CON'T TO MONITOR AND KEEP PT SAFE T/O REMAINDER OF SHIFT.
[2019-09-28 03:57] LABS: BASOPHILS ABSOLUTE AUTO 0.02 K/mm3 (0.00-0.23); BASOPHILS PERCENT AUTO 0 % (0-2); EOSINOPHILS ABSOLUTE AUTO 0.11 K/mm3 (0.00-0.68); EOSINOPHILS PERCENT AUTO 2 % (0-6); Hematocrit 35.3 % (37.0-53.0); Hemoglobin 11.5 g/dL (13.5-17.5); IMMATURE GRAN ABSOLUTE AUTO 0.01 K/mm3 (0.00-0.10); IMMATURE GRAN PERCENT AUTO 0 % (0-1); LYMPHOCYTES ABSOLUTE AUTO 0.48 K/mm3 (0.84-5.20); LYMPHOCYTES PERCENT AUTO 9 % (21-46); MONOCYTES ABSOLUTE AUTO 0.51 K/mm3 (0.16-1.47); MONOCYTES PERCENT AUTO 10 % (4-13); Mean Corpuscular HGB 30.7 pg (26.0-34.0); Mean Corpuscular HGB Conc 32.6 g/dL (31.5-36.5); Mean Corpuscular Volume 94 fL (80-100); Mean Platelet Volume 10.6 fL (9.1-12.4); NEUTROPHILS ABSOLUTE AUTO 4.05 K/mm3 (1.96-9.15); NEUTROPHILS PERCENT AUTO 78 % (41-73); Platelet Count 212 K/mm3 (150-400); RDW Coefficient Variation 15.8 % (11.7-14.2); RDW Standard Deviation 53.9 fL (35.1-46.3); Red Blood Cell Count 3.74 M/mm3 (4.30-5.90); White Blood Cell Count 5.18 K/mm3 (4.00-11.30)
[2019-09-28 04:18] LABS: Albumin, Blood 2.5 g/dL (3.4-5.0); Albumin/Globulin Ratio 0.5 (0.8-1.8); Bilirubin, Total 0.9 mg/dL (0.1-1.0); Calcium, Blood 7.7 mg/dL (8.5-10.1); Creatinine, Blood 2.25 mg/dL (0.60-1.20); Globulin, Blood 4.6 g/dL (2.2-4.0); Potassium, Blood 4.5 mmol/L (3.5-5.5); Total Protein, Blood 7.1 g/dL (6.4-8.2)
--- NOTE | 2019-09-28 05:59 | NUR ---
SHIFT SUMMARY PT REMAINS STABLE AT THIS TIME. NO CHANGES TO HIS VITALS. ART LINE CON'T TO BE PATENT. WITH GOOD WAVE FORM. ALL VITALS ARE STABLE. NO CHANGES TO GTT RATES. PT HAD 12 LEAD EKG PERFORMED THIS AM ORDERED. PT STATES HE HAS NOT HAD A BM FOR A FEW DAYS. WILL INQUIRE ABOUT HAVING A STOOL SOFTNER STARTED FOR HIM. HE IS CONCERNED ABOUT HAVING TO USE A BED SCHREIBER, BUT STATES HE WILL TRY WHEN NEEDED. CARPIO CATH CON'T TO BE PATENT. DRAINING OUT MINIMAL DARK YELLOW URINE. NO SEDEMENT NOTED. PT REFUSED TO BE REPOSISTIONED T/O SHIFT. STATING HE IS COMFORTABLE AND DOESN'T NEED TO BE TURNED HE SHIFTS IN BED HIMSELF. WILL CON'T TO MONITOR PT T/O REMAINDER OF SHIFT UNTIL REPORT TO ONCOMING RN.
--- NOTE | 2019-09-28 07:00 | NUR ---
REC'D BEDSIDE REPORT FROM PRATEEK MORTON AND AM NOW ASSUMING CARE OF THIS PT.
--- NOTE | 2019-09-28 08:45 | NUR ---
DR LOUIS IN TO ASSESS PT. WILL CONTINUE CURRENT PLAN OF CARE. WILL ATTEMPT TO WEAN DOWN LEVOPHED T/O SHIFT.
--- NOTE | 2019-09-28 10:20 | NUR ---
PT UPDATE: PT SITTING UP IN BED AND TALKING ON THE PHONE W/FAMILY. PT MEDICATED WITH FENTANYL IVP PER REQUEST PRIOR TO WOUND CARE OF LE'S WITH [facility].
--- NOTE | 2019-09-28 17:00 | NUR ---
SHIFT SUMMARY: PT REMAINS ALERT AND ORIENTATED T/O SHIFT. PT ABLE TO CALL FOR OWN NEEDS AND ASSIST WITH TURNS IN THE BED. PT STILL HAS ARTERIAL LINE TO RT RADIAL, WHICH LIMITS MOBILITY. PT HAS CONTINUOUS UE TREMORS. LUNGS ARE CLEAR, DIMINISHED IN RT BASE AND INSPIRATORY CRACKLES IN LT BASE. SPO2 SATS MID-UPPER 90% RANGE ON RA. PT VERY DYSPNEIC WITH MINIMAL EXERTION. HR IRREGULAR, SR WITH PAC'S. ARTERIAL LINE FOR ACCURATE BP'S. PT REMAINS ON DOBUTAMINE @ SET RATE 7.5MCG/KG/MIN, AND TITRATING LEVOPHED, CURRENTLY AT 17MCG/MIN. CARPIO CATHETER DRAINING CLOUDY, YELLOW URINE DRAINING SMALL AMTS TO GRAVITY. SMALL SOFT BM THIS SHIFT PER BEDPAN. -FULL CODE -CONTINUE TO WEAN DOWN LEVOPHED ABLE
--- NOTE | 2019-09-28 19:14 | NUR ---
REPORTED OFF TO PRATEEK ZENG WHO IS NOW ASSUMING CARE OF THIS PT.
--- NOTE | 2019-09-28 20:00 | NUR ---
ASSUMED CARE OF PT AT 1915. REPORT RECEIVED AT BEDSIDE. PT PRESENTS IN BED. ALERT AND ORIENTED PLEASANT AND COOPERATIVE WITH CARE AND ASSESSMENT. DENIES PAIN AT THIS TIME. WOUNDS ON LOWER EXTRIMITIES WITH MEPILEX DRESSINGS. DOBUTAMINE DRIP AT 7.5 MCG'S/KG/MIN. LEVOPHED AT 17 MCG'S/MIN. PT HAS ART LINE IN RIGHT RADIAL. WILL TITRATE DRIPS TO MAINTAIN MAP > 60. WILL REVIEW CHART AND PLAN OF CARE FOR THIS PT.
--- NOTE | 2019-09-28 23:30 | NUR ---
HAVE NEEDED TO INCREASE LEVOPHED DRIP TO 18 MCG'S/MIN TO KEEP MAP > 60. DOBUTAMINE REMAINS AT PRESCRIBED RATE. PT HAS EPISODE OF NAUSEA WITH VOMITING. MEDICATED WITH ZOFRAN. PT HAS NOT HAD ANY SIGNIFICANT BM SINCE PRIOR TO ADMIT. DID ADMINISTER MILK OF MAGNESIA TO FACILITATE BOWEL MOVEMENT. PT HAS HAD SEVERAL LOOSE VERY SMALL BM'S. WILL CONTINUE TO MONITOR.
--- NOTE | 2019-09-29 03:25 | NUR ---
PT HAS NO FURTHER COMPLAINTS OF NAUSEA. HAS NOT HAD ANY RESULTS FROM MILK OF MAGNESIA. DENIES PAIN. DOBATAMINE AND LEVOPHED DRIPS REMAIN UNCHANGED. PT IS ABLE TO MAINTAIN MAP > 60. HAS NOT BEEN ABLE TO SLEEP ACCORDING TO PT. HAS BEEN WATCHING TELEVISION MOST OF THIS TIME.
[2019-09-29 05:57] LABS: BASOPHILS ABSOLUTE AUTO 0.01 K/mm3 (0.00-0.23); BASOPHILS PERCENT AUTO 0 % (0-2); EOSINOPHILS ABSOLUTE AUTO 0.11 K/mm3 (0.00-0.68); EOSINOPHILS PERCENT AUTO 2 % (0-6); Hematocrit 35.1 % (37.0-53.0); Hemoglobin 11.4 g/dL (13.5-17.5); IMMATURE GRAN ABSOLUTE AUTO 0.02 K/mm3 (0.00-0.10); IMMATURE GRAN PERCENT AUTO 0 % (0-1); LYMPHOCYTES ABSOLUTE AUTO 0.42 K/mm3 (0.84-5.20); LYMPHOCYTES PERCENT AUTO 7 % (21-46); MONOCYTES ABSOLUTE AUTO 0.63 K/mm3 (0.16-1.47); MONOCYTES PERCENT AUTO 11 % (4-13); Mean Corpuscular HGB 30.1 pg (26.0-34.0); Mean Corpuscular HGB Conc 32.5 g/dL (31.5-36.5); Mean Corpuscular Volume 93 fL (80-100); Mean Platelet Volume 10.5 fL (9.1-12.4); NEUTROPHILS ABSOLUTE AUTO 4.55 K/mm3 (1.96-9.15); NEUTROPHILS PERCENT AUTO 79 % (41-73); Platelet Count 207 K/mm3 (150-400); RDW Coefficient Variation 15.4 % (11.7-14.2); RDW Standard Deviation 52.7 fL (35.1-46.3); Red Blood Cell Count 3.79 M/mm3 (4.30-5.90); White Blood Cell Count 5.74 K/mm3 (4.00-11.30)
[2019-09-29 06:20] LABS: Alanine Aminotransfer (ALT/SGP <6 U/L (12-78); Albumin, Blood 2.6 g/dL (3.4-5.0); Albumin/Globulin Ratio 0.5 (0.8-1.8); Alk Phos 136 U/L (50-136); Anion Gap 8 mmol/L (6-16); Aspartate Aminotrans (AST/SGOT 14 U/L (12-37); Bilirubin, Total 0.9 mg/dL (0.1-1.0); Blood Urea Nitrogen 55 mg/dL (8-24); Bun/Creatinine Ratio 21.3 (12.0-20.0); CO2, Blood 19 mmol/L (21-32); Calcium, Blood 7.6 mg/dL (8.5-10.1); Chloride, Blood 99 mmol/L (98-108); Creatinine, Blood 2.58 mg/dL (0.60-1.20); Globulin, Blood 4.8 g/dL (2.2-4.0); Glomerular Filtration Rate 27 (60-); Glucose, Blood 118 mg/dL (70-99); Potassium, Blood 4.5 mmol/L (3.5-5.5); Sodium, Blood 126 mmol/L (136-145); Total Protein, Blood 7.4 g/dL (6.4-8.2)
--- NOTE | 2019-09-29 06:30 | NUR ---
PT CONTINUES ON DOBUTAMINE AND LEVOPHED AT PREVIOUSLY NOTED RATES. PT'S BLOOD PRESSURES REMAIN WITHIN GOAL. NO FURTHER NAUSEA. NO FURTHER STOOLS. PT DENIES PAIN AT THIS TIME. WILL CONTINUE TO MONITOR PT, AND WILL REPORT OFF TO ONCOMING RN.
--- NOTE | 2019-09-29 07:15 | NUR ---
RECIEVED REPORT FROM PRATEEK WRIGHT AND AM NOW ASSUMING CARE OF THIS PT.
--- NOTE | 2019-09-29 13:05 | NUR ---
DR STOREY IN TO ASSESS PT. DISCUSSED LABS THAT WERE OUT OF RANGE (NA/CA) DISCUSSED F/U ON MG. DISCUSSED POSITIVE FLUID BALANCE, DECREASING RENAL FUNCTION DESPITE BP BEING MAINTAINED WITH TITRATED LEVOPHED, AND DOBUTAMINE @ 7.5MCG/KG/MIN. ADDING NEPHROLOGY TO PT'S CASE FOR WORSENING RENAL FUNCTION. DISCUSSED RESPIRATORY STATUS, AUDIBLE WHEEZES. WILL OBTAIN CXR AND NEBULIZER TX'S.
--- NOTE | 2019-09-29 13:57 | NUR ---
CONSULTED DR HEBERT: DISCUSSED PT'S CASE, SEE NEW ORDERS. CALL AND INFORMED RT OF STAT ABG. WILL CALL DR HEBERT WITH RESULTS.
--- NOTE | 2019-09-29 14:08 | NUR ---
CALLED CALEB HUTCHISON SUPERVIOR INFORMED OF RENAL ULTRASOUND.
[2019-09-29 14:31] LABS: PO2 Arterial 104 mmHg (80-100)
[2019-09-29 14:33] LABS: pH Blood Arterial 7.29 (7.35-7.45)
--- NOTE | 2019-09-29 14:36 | NUR ---
CALLED AND REPORTED RESULTS TO DR HEBERT. SEE NEW ORDERS.
[2019-09-29 18:06] LABS: Alanine Aminotransfer (ALT/SGP <6 U/L (12-78); Albumin, Blood 2.6 g/dL (3.4-5.0); Albumin/Globulin Ratio 0.6 (0.8-1.8); Alk Phos 135 U/L (50-136); Anion Gap 10 mmol/L (6-16); Aspartate Aminotrans (AST/SGOT 17 U/L (12-37); Bilirubin, Total 0.9 mg/dL (0.1-1.0); Blood Urea Nitrogen 53 mg/dL (8-24); Bun/Creatinine Ratio 22.5 (12.0-20.0); CO2, Blood 18 mmol/L (21-32); Calcium, Blood 7.6 mg/dL (8.5-10.1); Chloride, Blood 97 mmol/L (98-108); Creatinine, Blood 2.36 mg/dL (0.60-1.20); Globulin, Blood 4.6 g/dL (2.2-4.0); Glomerular Filtration Rate 29 (60-); Glucose, Blood 119 mg/dL (70-99); Potassium, Blood 4.3 mmol/L (3.5-5.5); Sodium, Blood 125 mmol/L (136-145); Total Protein, Blood 7.2 g/dL (6.4-8.2)
--- NOTE | 2019-09-29 19:30 | NUR ---
SHIFT SUMMARY/REPORTED OFF: REPORTED OFF TO PRATEEK PEREZ WHOM IS NOW ASSUMING CARE OF THIS PT. PT REMAINS ALERT AND ORIENTED, HOWEVER, UPON BEDSIDE REPORT THE PATIENT WANTED TO TELL THIS RN SOMETHING AND HAD AN EXTREMELY HARD TIME REMEMBERING WHAT HE WOULD LIKE TO SAY. PT IS EXTREMELY TIRED AND DID NOT SLEEP LAST NIGHT AND FOR ONLY VERY SHORT PERIODS T/O THIS SHIFT. HOWEVER, THIS IS A CHANGE IN MENTATION AND SHOULD CONTINUE TO BE MONITORED. ALL CRITICAL GTTS VISUALIZED BY PRATEEK PEREZ AND DISCUSSED DR COTA'S PLAN WITH THE VASOPRESSORS. SEE NURSE NOTIFY ORDERS. DOBUTAMINE TO REMAIN AT 7.5MCG/KG/MIN, AND CONTINUE TO WEAN OFF LEVOPHED IF POSSIBLE WITH HOPES TO START LASIX GTT. HEPARIN GTT RUNNING AT 15.5U/KG/HR AND NA BICARG GT @ 50ML/HR, STARTED AFTER REC'ING STAT ABG RESULTS. ARTERIAL LINE REMAINS IN RT WRIST AND READS WELL. ADDED CVP LINE TO PICC LINE AND CVP 19-20. CONTINUE TO MONITOR QSHIFT. PT CONTINUED TO HAVE A LARGE AMT OF GENERALIZED/DEPENDENT/HARD/PITTING EDEMA, ESPECIALLY IN RT/LT FLANK AREA. ABD DISTENDED/SLIGHTLY FIRM/ WITH HYPOACTIVE BT'S. PT HAS CONTINUED TO HAVE A VERY POOR APPETITE AND ATE VERY LITTLE TODAY. PT CONTINUING TO EXPERIENCE NAUSEA WITH ONE EPISODE OF EMESIS TODAY AFTER ATTEMPTING TO EAT A COUPLE OF BITES OF LUNCH. 24 HOUR URINE PROTEIN TEST STARTED TODAY.
--- NOTE | 2019-09-29 21:17 | NUR ---
ASSUMED CARE OF PT, REPORT RCV'D FROM PRATEEK RESTREPO. DURING SHIFT REPORT PT APPEARED CONFUSED AND WAS HAVING DIFFICULTY "FINDING HIS WORDS", PT REPETIIVE. PER DAYSHIFT NURSE, THIS CONFUSION IS NEW ONSET. CURRENTLY PT IS ALERT AND ORIENTED, SLOW BUT APPROPRIATE RESPONSES. LUNG SOUNDS CLEAR BILATERAL UPPER LOBES WITH DIM BASES. CURRENTLY ON 6L NC WITH SPO2>90%. PT ON LEVOPHED 14 MCG/MIN AT START OF SHIFT, CURRENTLY ON 12 MCG/MIN. GOAL OF MAP>60-65 AND TITRATE LEVOPHED OFF. PER NURSE NOTIFY, ONCE LEVOPHED OFF START LASIX GTT @2 MG/HR WITH DOPAMINE GTT @2.5 MCG/MIN NEEDED. DOBUTAMINE GTT AT SET RATE OF 7.5 MCG/KG/MIN, NOT TO BE TITRATED. PT DENIES NAUSEA/VOMITING AT THIS TIME. BT+ X4. ABDOMEN DISTENDED, FIRM WITH DEPENDENT 2+ PITTING EDEMA ON SIDES-SOFT IN CENTER. NO TENDERNESS WITH PALPATION. CARPIO PATENT AND DRAINING SMALL AMOUNT OF URINE. 24 HOUR URINE COLLECTION IN PROGRESS TO BE COMPLETED 09/30/19 @ 1530. BLE RED/BLANCHABLE, APPEAR IMPROVED SINCE ADMISSION. DRESSINGS C/D/I. SODIUM BICARB GTT @ 50 ML/HR. HEPARIN GTT @15.5 U/KG/HR (89 KG DOSE WT) 18 G PERIPHERAL IV LAC, PICC DAVID, ART LINE RIGHT WRIST. ZEROED AT START OF SHIFT. SEE FULL SHIFT ASSESSMENT.
[2019-09-30 06:19] LABS: BASOPHILS ABSOLUTE AUTO 0.01 K/mm3 (0.00-0.23); BASOPHILS PERCENT AUTO 0 % (0-2); EOSINOPHILS ABSOLUTE AUTO 0.12 K/mm3 (0.00-0.68); EOSINOPHILS PERCENT AUTO 2 % (0-6); Hematocrit 33.4 % (37.0-53.0); Hemoglobin 10.8 g/dL (13.5-17.5); IMMATURE GRAN ABSOLUTE AUTO 0.01 K/mm3 (0.00-0.10); IMMATURE GRAN PERCENT AUTO 0 % (0-1); LYMPHOCYTES ABSOLUTE AUTO 0.39 K/mm3 (0.84-5.20); LYMPHOCYTES PERCENT AUTO 7 % (21-46); MONOCYTES PERCENT AUTO 11 % (4-13); Mean Corpuscular HGB Conc 32.3 g/dL (31.5-36.5); Mean Corpuscular Volume 93 fL (80-100); Mean Platelet Volume 10.7 fL (9.1-12.4); NEUTROPHILS ABSOLUTE AUTO 4.29 K/mm3 (1.96-9.15); NEUTROPHILS PERCENT AUTO 79 % (41-73); Platelet Count 180 K/mm3 (150-400); RDW Coefficient Variation 15.3 % (11.7-14.2); White Blood Cell Count 5.42 K/mm3 (4.00-11.30)
[2019-09-30 06:40] LABS: Albumin, Blood 2.5 g/dL (3.4-5.0); Albumin/Globulin Ratio 0.5 (0.8-1.8); Alk Phos 127 U/L (50-136); Anion Gap 12 mmol/L (6-16); Aspartate Aminotrans (AST/SGOT 22 U/L (12-37); Bilirubin, Direct 0.6 mg/dL (0.0-0.3); Bilirubin, Indirect 0.3 mg/dL (0.1-0.7); Bilirubin, Total 0.9 mg/dL (0.1-1.0); Blood Urea Nitrogen 54 mg/dL (8-24); Bun/Creatinine Ratio 19.1 (12.0-20.0); CO2, Blood 19 mmol/L (21-32); CPK Creatine Kinase 97 U/L (39-308); Calcium, Blood 7.6 mg/dL (8.5-10.1); Chloride, Blood 94 mmol/L (98-108); Creatinine, Blood 2.82 mg/dL (0.60-1.20); Globulin, Blood 4.6 g/dL (2.2-4.0); Glomerular Filtration Rate 24 (60-); Glucose, Blood 108 mg/dL (70-99); Magnesium, Blood 1.8 mg/dL (1.6-2.4); Phosphorus, Blood 4.9 mg/dL (2.5-4.9); Potassium, Blood 4.6 mmol/L (3.5-5.5); Sodium, Blood 125 mmol/L (136-145); Total Protein, Blood 7.1 g/dL (6.4-8.2); Uric Acid, Blood 12.4 mg/dL (3.5-7.2)
[2019-09-30 06:53] LABS: Alanine Aminotransfer (ALT/SGP <6 U/L (12-78)
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
--- NOTE | 2019-09-30 14:31 | NUR ---
PT TO COUNTER INSTALLER PT TRANSFERRED TO COUNTER INSTALLER AT THIS TIME. REPORT TO COUNTER INSTALLER RNS. PT SITTING UPRIGHT IN BED. LEVOPHED GTT AT 13 MCG, DOPAMINE GTT AT 7.5. HEPARIN GTT AT 15.5 UNIT/HR.
[2019-09-30 15:59] LABS: Protein, Urine Quantitative 153.2 mg/dL (0.0-11.9)
--- NOTE | 2019-09-30 19:23 | NUR ---
ARRIVAL FROM CAMPGROUND MANAGER AND HANDOFF PT ARRIVED FROM CAMPGROUND MANAGER AT 1650. HE IS A/O X 3, CALM AND COOPERATIVE. SWAN SECURED IN R IJ. PAWP WEDGED AND PARAMETERS ENTERED INTO CHART. LEVOPHED GTT REMAINS INFUSING ALONG WITH DOBUTAMINE. BEDSIDE HANDOFF REPORT TO DONALD WISDOM RN. DRIPS REVIEWED, KAROL PARAMETERS REVIEWED, ALONG WITH MEDICATION CHANGES TO BE DONE ORDERED BY MD ELAINE. DOPAMINE GTT IS TO BE STARTED AND LEVOPHED GTT TITRATED OFF. DOBUTAMINE AND DOPAMINE GTT ARE TO REMAIN INFUSING. LASIX GTT TO BE STARTED AND REMAIN AT 2 MG/HR FOR NIGHT.
--- NOTE | 2019-09-30 20:20 | NUR ---
ART LINE 79/47 MAP 53, NIBP 75/56 MAP 62 DOPAMINE AND LASIX STARTED AND HYPOTENSION CONTINUES
--- NOTE | 2019-09-30 20:37 | NUR ---
DOCTOR ARGENTINA NOTIFIED OF HYPOTENSION OK TO INCREASE TO DOPAMINE 15MCG DECREASE LASIX DRIP TO 1MG/HR
--- NOTE | 2019-10-01 01:19 | NUR ---
PATIENT ARRIVED TO ICU 15 VIA GURNEY FROM ED WITH BIPAP IN PLACE AND RT AT BEDSIDE. PATIENT TRANSFERRED TO BED USING SLIDER SHEET AND PLACED ON ICU MONITORING. 24HR MONITOR IN PLACE TO LEFT CHEST. LUNG SOUNDS COARSE T/O WITH SCATTERED WHEEZES TO LEFT. SOB WITH SLIGHT ACTIVITY. BIPAP SET 14/8 FIO2 50%. CARPIO PLACED AND LASIX AND ATIVAN GIVEN.
--- NOTE | 2019-10-01 03:22 | NUR ---
KYLE POKER MANAGER GIVEN UPDATE AND INFORMED OF LACTIC ACID RESULT. PATIENT NOW RESTING QUIETLY WITH BIPAP IN PLACE.
[2019-10-01 04:24] LABS: Hematocrit 34.4 % (37.0-53.0); Hemoglobin 11.4 g/dL (13.5-17.5)
[2019-10-01 04:47] LABS: Free Thyroxine 1.05 ng/dL (0.70-1.60); Magnesium, Blood 1.7 mg/dL (1.6-2.4)
[2019-10-01 04:48] LABS: Albumin, Blood 2.7 g/dL (3.4-5.0); Anion Gap 12 mmol/L (6-16); Blood Urea Nitrogen 60 mg/dL (8-24); Bun/Creatinine Ratio 19.3 (12.0-20.0); CO2, Blood 19 mmol/L (21-32); Calcium, Blood 7.4 mg/dL (8.5-10.1); Chloride, Blood 90 mmol/L (98-108); Creatinine, Blood 3.11 mg/dL (0.60-1.20); Glomerular Filtration Rate 21 (60-); Glucose, Blood 130 mg/dL (70-99); Phosphorus, Blood 4.9 mg/dL (2.5-4.9); Potassium, Blood 4.3 mmol/L (3.5-5.5); Sodium, Blood 121 mmol/L (136-145)
[2019-10-01 04:49] LABS: Triiodothyronine, Free 1.07 pg/mL (2.18-3.98)
--- NOTE | 2019-10-01 05:45 | NUR ---
DOCTOR MEILEE IN TO SEE PATIENT, SEE NEW ORDERS.
--- NOTE | 2019-10-01 06:30 | NUR ---
SUMMARY PATIENT RESTING IN BED, CONTINUES TO BE SOB WITH SLIGHT ACTIVITY. POSITIONING SELF IN BED FOR COMFORT. PA CATH TO RIGHT IJ WNL, SEE CARDIAC CALC. DOPAMINE 15, DOBUTAMINE 10, LEVOPHED TITRATED DOWN TO 4. LASIX DRIP DC'D AND BUMEX DRIP STARTED. ART LINE REMAINS IN PLACE WITH GOOD WAVE FORM CORRELATING WITH NIBP. PATIENT C/O NAUSEA OFF AND ON T/O NIGHT, MEDICATED WITH ZOFRAN. PATIENT SLEEPING OFF AND ON T/O NIGHT.
--- NOTE | 2019-10-01 08:38 | NUR ---
CARE ASSUMED CARE AND REPORT ASSUMED FROM DONALD WISDOM RN. PT SITTING UPRIGHT IN BED, HOB APPROX 30 DEGREES. HE IS REFUSING REPOSITIONING AT THIS TIME. CVP LINE, ART LINE, AND PA LINE ZEROED AT START OF SHIFT. CARDIAC CALCS COMPLETED. PT GOT NAUSEATED IMMEDIATELY FOLLOWING CALCS; ZOFRAN IVP GIVEN. PT COMPLAINS OF MILD ABDOMINAL PAIN; WAITING TO GIVE PO MEDS THIS AM. CURRENTLY NSR, HR 80S. MAP 62-68 FROM ART LINE. PT WHEEZING IN ALL REYES; USING YONKER TO SUCTION HIS ORAL SECRETIONS. SPO2 93% ON 8L HFNC. AFEBRILE THIS AM. CARDIAC CALCS RELAYED TO MD ELAINE OVER TELEPHONE; CONTINUE CURRENT REGIMEN. CURRENT DRIPS: DOBUTAMINE 10 MCG/KG/MIN DOPAMINE 15 MCG LEVOPHED 3 MCG/MIN BICARB 50 ML BUMEX 2 MG/HR HEPARIN 15.5 UNITS/HR WILL CONTINUE TO MONITOR CLOSELY.
--- NOTE | 2019-10-01 12:57 | NUR ---
REASSESSMENT CARDIAC CALCULATIONS COMPLETED AT 1210 ALONG WITH WEDGE PRESSURE. RESULTS TO MD ELAINE. PT IMMEDIATELY BEGAN VOMITING FOLLOWING CALCULATIONS. ZOFRAN IVP GIVEN AND NOW SYMPTOMS RESOLVED. LEVOPHED GTT OFF AT THIS TIME. DOBUTAMINE GTT AT 10, DOPAMINE GTT DECREASED TO 10. BICARB GTT REMAINS INFUSING. BUMEX GTT AT 2 MG/HR. HEPARIN CONTINUES TO INFUSE. PT SEEN BY MD ELAINE AT BEDSIDE AND POSSIBILITY FOR DIALYSIS DISCUSSED. PT REMAINS ON 8L NC AND IS AUDIBLY WHEEZING. WILL CONTINUE TO MONITOR.
[2019-10-01 15:26] LABS: Alanine Aminotransfer (ALT/SGP <6 U/L (12-78); Albumin, Blood 2.5 g/dL (3.4-5.0); Albumin/Globulin Ratio 0.6 (0.8-1.8); Alk Phos 121 U/L (50-136); Anion Gap 12 mmol/L (6-16); Aspartate Aminotrans (AST/SGOT 20 U/L (12-37); Blood Urea Nitrogen 56 mg/dL (8-24); Bun/Creatinine Ratio 17.7 (12.0-20.0); CO2, Blood 19 mmol/L (21-32); Calcium, Blood 7.2 mg/dL (8.5-10.1); Chloride, Blood 92 mmol/L (98-108); Creatinine, Blood 3.17 mg/dL (0.60-1.20); Globulin, Blood 4.3 g/dL (2.2-4.0); Glomerular Filtration Rate 21 (60-); Glucose, Blood 98 mg/dL (70-99); Potassium, Blood 4.5 mmol/L (3.5-5.5); Sodium, Blood 123 mmol/L (136-145); Total Protein, Blood 6.8 g/dL (6.4-8.2)
--- NOTE | 2019-10-01 16:00 | NUR ---
REASSESSMENT SPOKE WITH MD HEBERT AT 1500, PROVIDED STATUS UPDATE ON PT AND NEED FOR FURTHER INTERVENTION DUE TO PTS MODERATE RESP DISTRESS. PT HAS BEEN AVERAGING 25 ML/HR URINE OUTPUT FOR PAST 4-5 HOURS. [facility]VER CONSULTED FOR DIALYSIS CATHETER INSERTION AND STORE STOCKER AWARE OF NEED TO START DIALYSIS. MIDODRINE DOSE INCREASED PER MD HEBERT AND WILL PROVIDE AIDDITIONAL 10 MG DURING DIALYSIS. T.O. TO DISCONTINUE BUMEX AND BICARB GTT ONCE DIALYSIS IS STARTED. PT SITTING UPRIGHT IN BED, REFUSED REPOSITIONING AND REFUSED BEDBATH AT THIS TIME. EASILY SHORT OF BREATH. PT GRUNTING FREQUENTLY, CONTINUES TO USE HIS SUCTION. CONTINUES TO BE ON 8L HFNC. DOBUTAMINE AT 10 AND DOPAMINE AT 10. AWAITING DIALYSIS CATH INSERTION. WILL CONTINUE TO MONITOR.
--- NOTE | 2019-10-01 18:15 | NUR ---
SHIFT SUMMARY LEVOPHED GTT TITRATED OFF AT APPROX 1200 TODAY. PT SEEN BY MD ELAINE, WHO IS AWARE OF CARDIAC CALCULATION TRENDS. CARDIAC INDEX HAS IMPROVED IN LAST 24 HOURS. DOBUTAMINE GTT AT 10, DOPAMINE GTT AT 10. DIALYSIS CATH INSERTED IN AFTERNOON BY MD RAYA AND DIALYSIS IN PROCESS AT THIS TIME. SODIUM BICARB GTT AND BUMEX GTT DISCONTINUED ONCE DIALYSIS WAS STARTED. HEPARIN GTT CONTINUES TO INFUSE AT 15.5 UNITS/HR PER ORDER. HAS REMAINED IN NSR, HR 80S ENTIRE SHIFT. BEDBATH GIVEN AND LINENS CHANGED LATE THIS AFTERNOON. PT TOLERATED A QUICK TURN. CONTINUES TO TOLERATE 8L ON HFNC, WITH SPO2 AT 93%. WILL GIVE BEDSIDE, HANDOFF REPORT TO CATRACHO RN.
--- NOTE | 2019-10-01 19:41 | NUR ---
PATIENT RESTING IN BED WITH FIRST HEMODIALYSIS IN PROGRESS. DOPAMINE AND DOBUTAMINE INFUSING. ART LINE TO RIGHT WRIST WITH GOOD WAVEFORM. PA CATH IN PLACE TO RIGHT IJ. HD CATH TO LEFT IJ
--- NOTE | 2019-10-01 20:16 | NUR ---
consult with nursing on plan of care strategies.
--- NOTE | 2019-10-01 20:35 | NUR ---
HD COMPLETE, C/O NAUSEA WITH SMALL AMT YELLOW EMESIS. ZOFRAN GIVEN.
[2019-10-02 04:16] LABS: BASOPHILS ABSOLUTE AUTO 0.01 K/mm3 (0.00-0.23); BASOPHILS PERCENT AUTO 0 % (0-2); EOSINOPHILS ABSOLUTE AUTO 0.06 K/mm3 (0.00-0.68); EOSINOPHILS PERCENT AUTO 1 % (0-6); Hematocrit 30.7 % (37.0-53.0); Hemoglobin 10.1 g/dL (13.5-17.5); IMMATURE GRAN ABSOLUTE AUTO 0.02 K/mm3 (0.00-0.10); IMMATURE GRAN PERCENT AUTO 0 % (0-1); LYMPHOCYTES PERCENT AUTO 8 % (21-46); MONOCYTES ABSOLUTE AUTO 0.56 K/mm3 (0.16-1.47); MONOCYTES PERCENT AUTO 11 % (4-13); Mean Corpuscular HGB 29.7 pg (26.0-34.0); Mean Corpuscular HGB Conc 32.9 g/dL (31.5-36.5); NEUTROPHILS ABSOLUTE AUTO 4.13 K/mm3 (1.96-9.15); NEUTROPHILS PERCENT AUTO 80 % (41-73); Platelet Count 133 K/mm3 (150-400); RDW Coefficient Variation 14.6 % (11.7-14.2); RDW Standard Deviation 48.5 fL (35.1-46.3); White Blood Cell Count 5.18 K/mm3 (4.00-11.30)
[2019-10-02 04:18] LABS: Mean Corpuscular Volume 90 fL (80-100)
[2019-10-02 04:30] LABS: Albumin, Blood 2.9 g/dL (3.4-5.0); Anion Gap 11 mmol/L (6-16); Blood Urea Nitrogen 44 mg/dL (8-24); Bun/Creatinine Ratio 15.1 (12.0-20.0); CO2, Blood 22 mmol/L (21-32); Calcium, Blood 7.4 mg/dL (8.5-10.1); Chloride, Blood 94 mmol/L (98-108); Creatinine, Blood 2.92 mg/dL (0.60-1.20); Glomerular Filtration Rate 23 (60-); Glucose, Blood 91 mg/dL (70-99); Magnesium, Blood 1.9 mg/dL (1.6-2.4); Phosphorus, Blood 4.4 mg/dL (2.5-4.9); Sodium, Blood 127 mmol/L (136-145)
--- NOTE | 2019-10-02 06:43 | NUR ---
SUMMARY PATIENT SLEEPING OFF AND ON T/O THE NIGHT. AWAKENS EASILY TO VERBAL STIMULI. DOPAMINE AND DOBUTAMINE CONTINUE. PA LINE TO RIGHT IJ WITH GOOD WAVEFORM, ART LINE TO RIGHT WRIST CONTINUES TO HAVE GOOD WAVEFORM. DIALYSIS CATH TO LEFT IJ CLAMPED WITH SMALL AMT OF OOZING CONTAINED IN DRESSING. PATIENT MEDICATED WITH FENTANYL ONCE FOR C/O LEG CRAMPS.
--- NOTE | 2019-10-02 07:15 | NUR ---
REC'D BEDSIDE REPORT FROM PRATEEK BENNETT. REVIEWED ALL CRITICAL GTTS. CARDIAC CALCS DONE AT THIS TIME.
--- NOTE | 2019-10-02 09:37 | NUR ---
PT UPDATE: PT CONTINUES TO HAVE POOR APPETITE. REPORTS HE "DID NOT EAT ANYTHING YESTERDAY." VOCAL TEACHER IN ROOM AND SETTING UP FOR DIALYSIS SEASON. PT MEDICATED WITH ZOFRAN HE HAS SOME MILD NAUSEA AND REPORTS INCREASING NAUSEA WITH YESTERDAYS DIALYSIS TX. PT GIVEN AM MEDICATIONS.
--- NOTE | 2019-10-02 10:05 | NUR ---
AM ASSESSMENT: PT IS ALERT AND ORIENTED TO PERSON, PLACE, SITUATION. PT IS LONE P[place] AND FOLLOWS COMMANDS AND ANSWERS QUESTIONS SLOWLY BUT APPROPRIATELY. PT DENIES ANY PAIN AT THIS TIME. PT ABLE TO ASSIST WITH TURNS IN THE BED. LUNGS ARE CLEAR T/O BUT DIMINISHED IN THE BILATERALY BASES/RML. SP02 >90% ON RA. HR IRREGULAR, SR WITH PAC'S 80-90'S RANGE. PT HAS HARD/PITTING ANASARCA. PT HAS PICC IN RT UA WITH TITRATED DOPAMINE/DOBUTAMINE AND NS TKO. PT HAS SWAN IRAM IN RT IJ WITH HEPARIN GTT @ 15UNIT/KG/HR INFUSING, AND IMKEL IN PLACE IN LT IJ. PT TO RECIEVE DIALYSIS TODAY. WILL ATTEMPT TO WEAN DOWN DOBUTAMINE WHEN POSSIBLE. ABD MODERATERLY DISTENDED W/ CONTINUED MILD NAUSEA AND CONTINUED POOR APPETITE. WILL MEDICATE WITH ZOFRAN PRN. PT DRAINING SM AMTS OF TEA COLORED URINE TO GRAVITY PER CARPIO CATHETER. -FULL CODE -TITRATE VASOPRESSORS POSSIBLE
--- NOTE | 2019-10-02 11:47 | NUR ---
PT UPDATE: PT CONTINUES TO RECEIVE DIALYSIS. ENCOURAGED PT TO EAT SOME LUNCH. PT WORKING ON [employer] AT THIS TIME. DISCUSSED POSSIBLY DOING IV NUTRITION. WILL CONT TO OBSERVE APPETITE-FOOD CONSUMPTION TODAY AND READDRESS POTENTIAL NEED TOMORROW. DOPAMINE/DOBUTAMINE REMAIN AT THE SAME RATE THE START OF THIS SHIFT. WILL ATTEMPT TO START WEANING GTTS AFTER DIALYSIS TX DONE.
--- NOTE | 2019-10-02 15:07 | NUR ---
LE WOUNDS: BILATERAL LE WOUNDS (2 ON RT LAT/POSTERIOR CALF AND 1 ON LT MEDIAL CALF CLEANSED WITH SKINTEGRITY. THEN WOUND BED CLEANSED WITH DATKIN'S SOLN. SKIN PREP AROUND WOUND BED AND FOAM DRSGS PUT IN PLACE.
--- NOTE | 2019-10-02 15:27 | NUR ---
SUMMARY: PT REMAINS ALERT AND ORIENTED TO PERSON/PLACE/SITUATION/FOLLOWS COMMANDS, ANSWERS QUESTIONS SLOWLY BUT APPROPRIATELY. PT ABLE TO MINIMALLY ASSIST IN THE BED. LUNGS REMAIN CLEAR BUT DIMINISHED IN BILATERAL BASES. PT CONTINUES TO BECOME VERY DYSPNEIC WITH MINIMAL EXERTION AND PT DOES NOT TOLERATE LYING LESS THAN A 45 DEGREE ANGLE. HR IRREGULAR, SR WITH FREQUENT PAC'S. PT'S ANASARCA IMPROVED AFTER DIALYSIS, WHERE 4L WERE TAKEN OFF. PT REPORTS BREATHING IS "BETTER" WELL. PICC LINE IN THE RT UA WITH DOPAMINE/DOBUTAMINE BEING TITRATED TO MAINTAIN BLOOD PRESSURE. ABD SLIGHLTY FIRM/DISTENDED W/HYPOACTIVE BT'S X 4 QAUDS. CARPIO CATH DRAINING DARK YELLOW URINE TO GRAVITY. NO BM THIS SHIFT. PT CONTINUES TO HAVE A VERY POOR APPETITE.
--- NOTE | 2019-10-02 18:44 | NUR ---
PT UPDATE: PT CONTINUES TO HAVE VERY POOR APPETITE, WILL DISCUSS WITH DIETARY TOMORROW. PT HAD 4 LITERS REMOVED DURING DIALYSIS TODAY. ONLY 25ML OUT OF DARK TEA URINE.
--- NOTE | 2019-10-02 19:04 | NUR ---
BEDSIDE REPORT GIVEN TO PRATEEK ZENG WHOM IS ASSUMING CARE OF THIS PT.
--- NOTE | 2019-10-02 20:00 | NUR ---
ASSUMED CARE OF PT AT 1915. REPORT RECEIVED AT BEDSIDE. PT PRESENTS IN BED ALERT AND ORIENTED. PLEASANT AND COOPERATIVE WITH CARE AND ASSESSMENT. DENIES PAIN OR DISTRESS AT THIS TIME. DOBUTAMINE AT 10 MCG/KG/MIN. HEPARIN DRIP INFUSION PER PHARMACY RATE. DOPAMIN AT 10 MCG/KG/MIN. DRIPS VERIFIED WITH OFFGOING RN. WILL REVIEW CHART AND PLAN OF CARE FOR THIS PT.
--- NOTE | 2019-10-02 23:02 | NUR ---
UNFORTUNATELY HAVE NEEDED TO INCREASE DOPAMINE DRIP UP TO 14 MCG'S/KG/MIN TO PROVIDE MAP 60-65. HAVE LEFT DOBUTAMINE AT 10 MCG/KG/MIN. PT CURRENTLY SLEEPING. ART LINE DRESSING CHANGED SECONDARY TO SOME MILD OOZING. PT CONTINUES ON 6 L/M OXYGEN PER HIGH FLOW NASAL CANNULA. WILL CONTINUE TO MONITOR PT.
[2019-10-02 23:09] LABS: HBSAG SCREEN Negative (Negative); HEP A AB, IGM Negative (Negative); HEP B CORE AB, IGM Negative (Negative); HEP C VIRUS AB 0.1 (0.0-0.9)
--- NOTE | 2019-10-03 03:00 | NUR ---
PT AWAKENS AND IS CONFUSED ABOUT WHERE HE IS AT THIS TIME. PT VOICES THAT HE IS FEELING SOMEWHAT DISORIENTED. PT REORIENTED. PT ASKS ABOUT HAVING HIS CELEXA INCREASED TO REDUCE THIS CONFUSION. TEACHING DONE WITH PT AND CELEXA, AND POSSIBLE CONFUSION SECONDARY TO TRAZADONE THAT HE RECEIVED AT HS. HE HAS ONLY HAD SEVERAL DOSES OF TRAZADONE DURING THIS HOSPITAL STAY, AND THAT TRAZADONE WAS NEW TO HIM THIS VISIT. PT VOICES UNDERSTANDING, AND THAT HE IS FEELING SOMEWHAT BETTER. WILL CONTINUE TO MONITOR.
[2019-10-03 03:57] LABS: Hematocrit 32.4 % (37.0-53.0); Hemoglobin 10.5 g/dL (13.5-17.5)
[2019-10-03 04:15] LABS: Albumin, Blood 2.8 g/dL (3.4-5.0); Anion Gap 9 mmol/L (6-16); Blood Urea Nitrogen 35 mg/dL (8-24); Bun/Creatinine Ratio 11.5 (12.0-20.0); CO2, Blood 25 mmol/L (21-32); Calcium, Blood 7.6 mg/dL (8.5-10.1); Chloride, Blood 96 mmol/L (98-108); Creatinine, Blood 3.04 mg/dL (0.60-1.20); Glomerular Filtration Rate 22 (60-); Glucose, Blood 93 mg/dL (70-99); Magnesium, Blood 1.9 mg/dL (1.6-2.4); Phosphorus, Blood 4.2 mg/dL (2.5-4.9); Potassium, Blood 3.9 mmol/L (3.5-5.5); Sodium, Blood 130 mmol/L (136-145)
--- NOTE | 2019-10-03 06:36 | NUR ---
DR HEBERT COMES IN TO SEE PT. ORDERS RECEIVED. PT HAS CONTINUED ON DOBUTAMINE AT 10 MCG'S/KG/MIN AND DOPAMINE AT 14 MCG/KG/MIN. MAP MAINTIANINS 60 - 65. INCREASE MADE IN MIDODRINE DOSING TO QID. TEACHING DONE WITH PT THIS AM ON CHANGE. PT VERBALIZES UNDERSTANDING. HAS RECEIVED DOSE THIS AM. WILL MONITOR AND EVALUATE AFFECTIVENESS. WILL ATTEMPT TO WEAN DOPAMINE DOWN ABLE. PT STATES THAT HE FEELS THAT HE IS CLEARING AND DOES NOT FEEL DISORIENTED. PT ONLY HAS 8 ML VERY DARK AND CONCENTRATED URINE OUTPUT FROM CARPIO. NO BM'S THIS NIGHT. WILL CONTINUE TO MONITOR PT, AND WILL REPORT OFF TO ONCOMING RN.
--- NOTE | 2019-10-03 07:00 | NUR ---
AM ASSESSMENT: REC'D BEDSIDE REPORT FROM PRATEEK ZENG AND AM NOW ASSUMING CARE OF PT. PT IS ALERT AND ORIENTED TO SELF/PLACE/SITUATION. PT [place] AND DOES NOT WEAR HEARING AIDS. PT SLOWLY AND APPROPRIATELY FOLLOWS COMMANDS AND ANSWERS QUESTIONS. PT ABLE TO MINIMALLY ASSIST WITH TURNS IN THE BED, HOWEVER, LIMITED R/T EXERTIONAL DYSPNEA. LUNGS ARE DIMINISHED IN THE BILATERAL BASES/RLL, AND END EXPIRATORY WHEEZE HEARD IN THE BILATERAL UPPER LOBES. PT SATS >90% ON 6L 02 VIA N/C. HR IRREGULAR, ATRIAL FIB WITH PVC'S, RATE 90-100'S RANGE. PT HAS CONTINUED ANASARCA ALL OVER. PT TO RECEIVE DIALYSIS TX TODAY. PICC LINE IN THE RT UA WITH DOPAMINE NOW AT 14MCG/MIN, AND DOBUTAMINE 10MCG/KG/MIN, AND NS-TKO. ARTERIAL LINE IN THE RT WRIST REMAINS IN PLACE FOR ACCURATE BP'S. NO LEAKING FROM THIS SITE AT THIS TIME. ABD DISTENDED/NO GAURDING NOTED, HYPOACTIVE BT'S IN ALL 4 QAUDS. CARPIO CATH DRAINING CONCENTRATED, DARK TEA COLORED PER CARPIO TO GRAVITY. WILL DISCUSS TPN WITH FAMILY PRACTICE PHYSICIAN ASSISTANT TODAY PT STILL HAS A VERY POOR APPETITE.
--- NOTE | 2019-10-03 10:03 | NUR ---
PT UPDATE: PARMJIT FROM DIALYSIS, IN ROOM SETTING PT UP FOR DIALYSIS. PT REPOSITIONED PRIOR TO DIALYSIS. IV FROM LT UA D/C'D, CATH INTACT.
--- NOTE | 2019-10-03 10:35 | NUR ---
DR GROVE IN TO ASSESS PT. UPDATED WITH PT'S STATUS. ASKED ABOUT OBTAINING A DIETIARY CONSULT FOR POTENTIAL TPN PT IS STILL NOT EATING WELL. SEE NEW ORDERS.
--- NOTE | 2019-10-03 10:41 | NUR ---
UPDATED DR COTA OVER THE PHONE ON PT'S CURRENT STATUS. DISCUSSED CONTINUED NEED FOR THE PT'S VASOPRESSORS. DR COTA TO DISCUSS POTENTIAL TNX TO A HIGHER FACILITY. AWAITING TO HEAR BACK.
--- NOTE | 2019-10-03 11:27 | NUR ---
PT UPDATE: PT CONTINUES TO RECIEVE DIALYSIS AT THIS TIME. PT SLEEPING WHEN UNDISTURBED.
--- NOTE | 2019-10-03 14:06 | NUR ---
WOUND CARE: WOUNDS TO LE'S (2-RT LATERAL CALF, 1-LT MEDIAL CALF) CLEANSED WITH SKINTEGRITY, THEN WOUND BEDSIDE CLEANSED WITH DATKIN'S SOLN AND FOAM DRSGS APPLIED.
--- NOTE | 2019-10-03 17:48 | NUR ---
SHIFT SUMMARY: PT IS ALERT AND ORIENTED. PT DIALYZED TODAY WITH 4.5L OFF. PT APPEARS LESS EDEMATOUS, SKIN IS NOT TIGHT, AND PT REPORTS HE CAN BREATH BETTER. PT REMAINS VERY DYSPNEIC WITH MINIMAL EXERTION. DR ELAINE WAS GOING TO DISCUSS POTENTIAL TNX OUT TO A HIGHER LEVEL OF CARE WITH DR GROVE/EMILEE. UNAWARE OF RESULT OF THESE CONVERSATIONS. NEURO STATUS UNCHANGED FROM EARLIER NOTED. LUNGS REMAIN DIMINISHED IN THE BILATERAL BASES. SATS >90% ON 6L 02 VIA N/C. HR REMAINS IRREGULAR, ATRIAL FIB WITH SLIGHTLY HIGHER RATES TODAY 100-110'S. PT REMAINS ON DOBUTAMINE @ 10MCG/KG/MIN, AND DOBUTAMINE @ 12MCG/KG/MIN. ABLE TO GET DOBUTAMINE IN DOUBLE STRENGTH AND PLACED IN NA TO DECREASE INTAKE AND ASSIST WITH LOW NA LEVELS. ABD FIRM/ROUND/NO GRIMACE TO PALPATION. PT HAS CONT POOR APPETITE. STARTED TPN THIS SHIFT THROUGH PICC TO ASSIST WITH OVERALL NUTRITION STATUS. PT REMAINS AFEBRILE T/O SHIFT.
--- NOTE | 2019-10-03 19:15 | NUR ---
REPORTED OFF TO PRATEEK ZENG WHOM IS ASSUMING CARE OF THIS PT.
--- NOTE | 2019-10-03 20:00 | NUR ---
ASSUMED CARE OF PT AT 1915. REPORT RECEIVED AT BEDSIDE. PT PRESENTS IN BED WITH FLAT AFFECT. WILL ENGAGE IN CONVERSATION AND PARTICIPATE IN REPORT ONLY WHEN PROMPTED. DENIES NAUSEA OR PAIN. POOR APPETITE CONTINUES. DOES TAKE APPROX 25 PERCENT OF HIS DINNER. ON TPN AT RATE. DOBUTAMINE (DOUBLE STRENGTH) AT 10 MCG/KG/MIN WITH DOPAMINE AT 13 MCG/KG/MIN. DID DECREASE DOPAMINE TO 12 MCG'S/KG/MIN. WILL REVIEW CHART AND PLAN OF CARE FOR THIS PT.
--- NOTE | 2019-10-04 01:00 | NUR ---
PT NOTED TO BE 'JUMPY' WHILE SLEEPING. PT STATES THAT HE IS NOT AWARE THAT THIS IS OCCURRING. DENIES BAD DREAMS. CONTINUES IN ATRIAL FIB. NO CHANGES TO PRESSORS. ART LINE HAS SLIGHT LEAKAGE. REMOVED DRESSING, AND NOTED THAT THE CONNECTION WAS SLIGHTLY LOOSENED. TIGHTENED CONNECTION, AND REDRESSED ART LINE.
[2019-10-04 05:09] LABS: Anion Gap 7 mmol/L (6-16); Blood Urea Nitrogen 32 mg/dL (8-24); Bun/Creatinine Ratio 10.5 (12.0-20.0); CO2, Blood 26 mmol/L (21-32); Calcium, Blood 7.7 mg/dL (8.5-10.1); Chloride, Blood 98 mmol/L (98-108); Creatinine, Blood 3.04 mg/dL (0.60-1.20); Glomerular Filtration Rate 22 (60-); Glucose, Blood 116 mg/dL (70-99); Magnesium, Blood 1.9 mg/dL (1.6-2.4); Potassium, Blood 3.9 mmol/L (3.5-5.5); Sodium, Blood 131 mmol/L (136-145); Triglycerides 49 mg/dL (30-160)
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
--- NOTE | 2019-10-04 07:20 | NUR ---
ASSUMED CARE RECIEVED REPORT JESIKA ZENG RN. PT IS IN BED ASLEEP ON 5L NC. HE IS ON MULTIPLE GTTPS: DOPAMINE 12 MCG/KG/MIN, DOBUTAMINE 10 MCG/KG/MIN, CPN 75ML/HR, NS TKO, AND HEPARIN 14.5 UNITS/KG/HOUR (DOSING WEIGHT 89KG, RATE 25.8ML/HR; VERIFIED WITH AZUCENA AND ORDERS). HE HAS A CARPIO CATHETER THAT IS PATENT AND DRAINING MINIMAL URINE. HE HAS AN ART LINE IN HIS RIGHT RADIAL ARTER, ARTERIAL WAVEFORM APPEARS ADEQUATE WITH CONSISTENT WAVE FORMS. HE IS IN AFIB, RATE ~95-115. BED IS LOW AND LOCKED. CALL LIGHT WITHIN REACH.
--- NOTE | 2019-10-04 09:06 | NUR ---
Received call from Bedside PRATEEK Ng reporting Pt may benefit from Palliative Care visit. Pt not improving. Pt resting in bed upon arrival. He denies pain. Pt is dyspneic as evidenced by work of breathing when speaking. Pt reports moderate anxiety. Offered therapeutic listening and answered questions. Pt asks "Can I do all this out patient"? Educated Pt on current condition and the possibility of transfering to [facility] for higher level of care. Discussed wishes for life sustaining measures with Pt requesting to remain a full code. Continued therapeutic listening. Spoke with Bedside PRATEEK Ng and discussed case. Pt appears to have a questionable level of understanding. Berenice reports telemedicine physician was recently visiting Pt and educated on his current condition in a clear manner. Palliative Care will remain available for therapeutic visits.
--- NOTE | 2019-10-04 11:02 | NUR ---
Attempted to notify family pt to transfer.
== END 2019-10-04 14:25 | disposition short-term general hospital (02) | DRG 286 ==
LOC: ER 15:27 → ICUW 17:39 → PCU 09-30 18:24 → ICUW 09-30 18:27
PROVIDERS: Internal Medicine; Internal Medicine Cardiovascular Disease; Internal Medicine Critical Care Medicine; Internal Medicine Nephrology; Nurse Practitioner Acute Care; Physician Assistant; ADMIT Hospitalist
PROC: 5A2204Z Restoration of Cardiac Rhythm, Single (ICD-10-PCS; 2019-09-24)
PROC: 0W993ZZ Drainage of Right Pleural Cavity, Percutaneous Approach (ICD-10-PCS; 2019-09-25)
PROC: 03HB33Z Insertion of Infusion Device into Right Radial Artery, Percutaneous Approach (ICD-10-PCS; 2019-09-26)
PROC: 4A023N6 Measurement of Cardiac Sampling and Pressure, Right Heart, Percutaneous Approach (ICD-10-PCS; principal; 2019-09-30)
PROC: 05HN33Z Insertion of Infusion Device into Left Internal Jugular Vein, Percutaneous Approach (ICD-10-PCS; 2019-10-01)
PROC: B544ZZA Ultrasonography of Left Jugular Veins, Guidance (ICD-10-PCS; 2019-10-01)
DX: I13.0 Hypertensive heart and chronic kidney disease with heart failure and stage 1 through stage 4 chronic kidney disease, or unspecified chronic kidney disease (principal); R57.0 Cardiogenic shock; I50.23 Acute on chronic systolic (congestive) heart failure; N17.9 Acute kidney failure, unspecified; E87.1 Hypo-osmolality and hyponatremia; I48.21 Permanent atrial fibrillation; L03.116 Cellulitis of left lower limb; E87.2 Acidosis; J90 Pleural effusion, not elsewhere classified; N18.3 Chronic kidney disease, stage 3 (moderate); I50.82 Biventricular heart failure; I25.5 Ischemic cardiomyopathy; E03.9 Hypothyroidism, unspecified; E78.5 Hyperlipidemia, unspecified; J44.9 Chronic obstructive pulmonary disease, unspecified; K29.50 Unspecified chronic gastritis without bleeding; F32.9 Major depressive disorder, single episode, unspecified; D63.1 Anemia in chronic kidney disease; I95.89 Other hypotension; K52.9 Noninfective gastroenteritis and colitis, unspecified; E88.09 Other disorders of plasma-protein metabolism, not elsewhere classified; E66.9 Obesity, unspecified; Z87.891 Personal history of nicotine dependence; Z86.718 Personal history of other venous thrombosis and embolism; Z99.2 Dependence on renal dialysis
CPT/HCPCS: 32555; 36415; 36556; 36569; 36620; 51703; 71045; 71046; 76770; 80048; 80053; 80069; 80074; 81001; 81050; 82042; 82248; 82530; 82533; 82550; 82803; 82945; 83615; 83735; 83880; 83986; 84100; 84153; 84156; 84157; 84439; 84443; 84478; 84481; 84484; 84550; 85014; 85018; 85025; 85027; 85610; 85730; 86317; 87040; 87070; 87086; 87205; 88108; 88305; 89051; 93005; 93010; 93451; 93922; 93970; 94640; 96365; 99285-25; A9270; A9270-GY; C1751; C1752; C1769; C1894; C8929; J0690; J1250; J1265; J1644; J1940; J2250; J2405; J3010; J3411; J7030; J7040; J7050; J7060; J7070; P9045; P9046; Q9957

== ENCOUNTER 2020-05-18 18:14 | Observation (INO) | payer MEDICARE, OTHER ==
[~2020-05-18] VITALS: Ht 180.3 cm; Wt 92.0 kg
[~2020-05-18 18:14] MED LIST changes: +CARVEDILOL3.125 MG PO; -CITA20 PO; +CITALOPRAM HBR10 MG PO; -FURO20 PO; +FURO40 PO; +Midodrine HCl10 MG PO; +PANTOPRAZOLE SO40 M2 PO
[2020-05-18 19:00] LABS: BASOPHILS ABSOLUTE AUTO 0.05 K/mm3 (0.00-0.23); BASOPHILS PERCENT AUTO 1 % (0-2); EOSINOPHILS ABSOLUTE AUTO 0.12 K/mm3 (0.00-0.68); EOSINOPHILS PERCENT AUTO 2 % (0-6); Hematocrit 40.6 % (37.0-53.0); Hemoglobin 12.5 g/dL (13.5-17.5); IMMATURE GRAN ABSOLUTE AUTO 0.04 K/mm3 (0.00-0.10); IMMATURE GRAN PERCENT AUTO 1 % (0-1); LYMPHOCYTES PERCENT AUTO 10 % (21-46); MONOCYTES ABSOLUTE AUTO 0.64 K/mm3 (0.16-1.47); MONOCYTES PERCENT AUTO 8 % (4-13); Mean Corpuscular HGB 28.6 pg (26.0-34.0); Mean Corpuscular HGB Conc 30.8 g/dL (31.5-36.5); Mean Corpuscular Volume 93 fL (80-100); Mean Platelet Volume 9.8 fL (9.1-12.4); NEUTROPHILS ABSOLUTE AUTO 6.29 K/mm3 (1.96-9.15); NEUTROPHILS PERCENT AUTO 79 % (41-73); Platelet Count 395 K/mm3 (150-400); RDW Coefficient Variation 14.6 % (11.7-14.2); RDW Standard Deviation 50.2 fL (35.1-46.3); Red Blood Cell Count 4.37 M/mm3 (4.30-5.90); White Blood Cell Count 7.94 K/mm3 (4.00-11.30)
[2020-05-18 19:26] LABS: Albumin, Blood 2.9 g/dL (3.4-5.0); Albumin/Globulin Ratio 0.5 (0.8-1.8); Bun/Creatinine Ratio 19.3 (12.0-20.0); Calcium, Blood 8.4 mg/dL (8.5-10.1); Creatinine, Blood 1.71 mg/dL (0.60-1.20); Globulin, Blood 5.5 g/dL (2.2-4.0); Potassium, Blood 3.6 mmol/L (3.5-5.5); Total Protein, Blood 8.4 g/dL (6.4-8.2); Troponin I 0.017 ng/mL (0.000-0.040)
[2020-05-18 19:29] LABS: Base Excess Venous 4.5 mmol/L; Bicarbonate Venous 27.3 mmol/L (24.0-30.0); PCO2 Venous 51.7 mmHg (38-42); pH Blood Venous 7.37 (7.34-7.37)
[2020-05-18] MEDS ORDERED: DIGOX125 MC1 PO (20:12)
[2020-05-18] MEDS ORDERED: PANTOPRAZOLE SO40 M2 PO (20:12)
[2020-05-18] MEDS ORDERED: REMERON15 MG PO (20:13)
[2020-05-18] MEDS ORDERED: SYNTHROID75 MCG PO (20:13)
[2020-05-18] MEDS ORDERED: METO25ER PO (20:13)
[2020-05-18 20:14] LABS: Magnesium, Blood 1.4 mg/dL (1.6-2.4); Phosphorus, Blood 4.1 mg/dL (2.5-4.9)
[2020-05-18] MEDS ORDERED: METO5 PO (20:14)
[2020-05-18] MEDS ORDERED: POTCHL20ER PO (20:14)
[2020-05-18] MEDS ORDERED: FURO40 PO (20:14)
[2020-05-18] MEDS ORDERED: ATOR10 PO (20:15)
[2020-05-18] MEDS ORDERED: ELIQUIS5 MG PO (20:15)
[2020-05-18 21:14] LABS: Adenovirus Not Detected (NOT DETECT); Bordetella pertussis Not Detected (NOT DETECT); Chlamydophila pneumoniae Not Detected (NOT DETECT); Coronavirus 229E Not Detected (NOT DETECT); Coronavirus HKU1 Not Detected (NOT DETECT); Coronavirus NL63 Not Detected (NOT DETECT); Coronavirus OC43 Not Detected (NOT DETECT); Human Metapneumovirus Not Detected (NOT DETECT); Human Rhinovirus/Enterovirus Not Detected (NOT DETECT); Influenza A/2009-H1 Not Detected (NOT DETECT); Influenza A/H1 Not Detected (NOT DETECT); Influenza A/H3 Not Detected (NOT DETECT); Influenza B Not Detected (NOT DETECT); Mycoplasma pneumoniae Not Detected (NOT DETECT); Parainfluenza Virus 1 Not Detected (NOT DETECT); Parainfluenza Virus 2 Not Detected (NOT DETECT); Parainfluenza Virus 3 Not Detected (NOT DETECT); Parainfluenza Virus 4 Not Detected (NOT DETECT); Respiratory Syncytial Virus Not Detected (NOT DETECT); SARS-Cov-2 (COVID-19), BioFire Not Detected (NOT DETECT)
[2020-05-19 00:13] LABS: Digoxin (Lanoxin) 1.07 ug/mL (0.80-2.00)
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
--- NOTE | 2020-05-19 04:46 | NUR ---
SHIFT SUMMARY NEW ADMIT TO FLOOR LAST NIGHT. ADMITTED FOR DYSPNEA R/T CHF & PLEURAL EFFUSION. AOX4. VSS. TELE AFIB @78, READ PREVIOUS NOTE ABOUT RHYTHM CHANGE. DENIES DYSPNEA @REST, STATES DYSPNEA WORSE c ACTIVITY. ORIGIONALLY ON 2L O2 WHEN ARRIVED TO FLOOR, STATES HE DOES NOT WEAR O2 @HOME, SPO2 @96% THEREFORE I TITRATED O2 DOWN TO 1L. LUNGS SOUND DIM IN BASES, MORE IN RLL. HAS +1 EDEMA BLE. HAS BEEN NPO SINCE MIDNIGHT FOR POSSIBLE THORACENTESIS TODAY. DR BAIRES ASKED FOR ALL BLOOD THINNER MEDS TO BE HELD BEFORE PROCEDURE. CALL LIGHT IN REACH.
[2020-05-19 05:38] LABS: BASOPHILS ABSOLUTE AUTO 0.05 K/mm3 (0.00-0.23); BASOPHILS PERCENT AUTO 1 % (0-2); EOSINOPHILS ABSOLUTE AUTO 0.04 K/mm3 (0.00-0.68); EOSINOPHILS PERCENT AUTO 1 % (0-6); Hematocrit 34.7 % (37.0-53.0); Hemoglobin 10.6 g/dL (13.5-17.5); IMMATURE GRAN ABSOLUTE AUTO 0.03 K/mm3 (0.00-0.10); IMMATURE GRAN PERCENT AUTO 0 % (0-1); LYMPHOCYTES ABSOLUTE AUTO 0.68 K/mm3 (0.84-5.20); LYMPHOCYTES PERCENT AUTO 10 % (21-46); MONOCYTES ABSOLUTE AUTO 0.71 K/mm3 (0.16-1.47); MONOCYTES PERCENT AUTO 10 % (4-13); Mean Corpuscular HGB Conc 30.5 g/dL (31.5-36.5); Mean Corpuscular Volume 92 fL (80-100); Mean Platelet Volume 10.1 fL (9.1-12.4); NEUTROPHILS ABSOLUTE AUTO 5.44 K/mm3 (1.96-9.15); NEUTROPHILS PERCENT AUTO 78 % (41-73); Platelet Count 298 K/mm3 (150-400); RDW Coefficient Variation 14.7 % (11.7-14.2); RDW Standard Deviation 49.5 fL (35.1-46.3); Red Blood Cell Count 3.78 M/mm3 (4.30-5.90); White Blood Cell Count 6.95 K/mm3 (4.00-11.30)
[2020-05-19 05:54] LABS: International Normalized Ratio 1.26; Prothrombin Time Results 13.3 Sec (9.7-11.5)
[2020-05-19 06:02] LABS: Albumin, Blood 2.5 g/dL (3.4-5.0); Albumin/Globulin Ratio 0.5 (0.8-1.8); Bilirubin, Total 0.9 mg/dL (0.1-1.0); Bun/Creatinine Ratio 20.6 (12.0-20.0); Calcium, Blood 8.4 mg/dL (8.5-10.1); Creatinine, Blood 1.65 mg/dL (0.60-1.20); Globulin, Blood 4.8 g/dL (2.2-4.0); Potassium, Blood 3.4 mmol/L (3.5-5.5); Total Protein, Blood 7.3 g/dL (6.4-8.2)
[2020-05-19 11:48] LABS: Automated BF WBC Count 0.191 K/mm3 (0-999); Body Fluid WBC Count 191 /mm3 (0-999)
[2020-05-19 11:50] LABS: Albumin, Body Fluid 1.5 g/dL; Lactate Dehydrogenase, Body Fl 105 U/L; Protein, Body Fluid 3.5 g/dL
[2020-05-19 12:27] LABS: Total Cell Count, Body Fluid 100
[2020-05-19 12:28] LABS: Appearance, Body Fluid Clear (Clear); Color, Body Fluid Yellow (None-Yellow)
[2020-05-19 12:36] LABS: RBC Count, Body Fluid 248 /mm3 (0-0)
[2020-05-19] MEDS ORDERED: POTCHL20ER PO ×2 (14:07→14:08)
--- NOTE | 2020-05-19 16:05 | NUR ---
PATIENT GIVEN DISCHARGE INSTRUCTIONS WELL EDUCATIONAL MATERIAL. PATIENT SCHEDULED TO F/U WITH HIS PCP NEXT MONDAY. ALL QUESTIONS ANSWERED. IV REMOVED FOR DISCHARGE WELL TELE; RETURNED TELE TO PCU MEDICAL REGISTRAR. PATIENT HAD AN HOME O2 EVAL AND IT INDICATED THE NEED FOR 2L O2 NC WHILE AT REST AND 3L WITH ACTIVITY. [facility] JUST ARRIVED WITH THE PORTABLE O2 TANK FOR PATIENT TO BE ABLE TO DISCHARGE HOME. PATIENT IN ROOM WITH [facility] RESP BEING INSTRUCTED HOW TO USE THE OXYGEN. PATIENT TO DISCHARGE HOME AFTER EDUCATION.
--- NOTE | 2020-05-19 16:20 | NUR ---
PATIENT DICHARGED HOME AT 1620. PATIENT ESCORTED OUT OF THE HOSPITAL BY PAPER PROCESSING MACHINE HELPER IN WHEELCHAIR.
== END 2020-05-19 16:22 | disposition home or self-care (01) ==
LOC: ER 18:14 → MEDS 18:15
PROVIDERS: Emergency Medicine; Physician Assistant; ADMIT Internal Medicine
DX: J96.01 Acute respiratory failure with hypoxia (principal); I13.0 Hypertensive heart and chronic kidney disease with heart failure and stage 1 through stage 4 chronic kidney disease, or unspecified chronic kidney disease; I50.23 Acute on chronic systolic (congestive) heart failure; N18.30 Chronic kidney disease, stage 3 unspecified; I48.91 Unspecified atrial fibrillation; J44.9 Chronic obstructive pulmonary disease, unspecified; J90 Pleural effusion, not elsewhere classified; Z79.01 Long term (current) use of anticoagulants; Z79.899 Other long term (current) drug therapy; E03.9 Hypothyroidism, unspecified; E83.42 Hypomagnesemia; Z86.711 Personal history of pulmonary embolism
CPT/HCPCS: 0202U; 32555; 36415; 71045; 80053; 80162; 82042; 82803; 83615; 83735; 83880; 84100; 84157; 84484; 85025; 85610; 85730; 87070; 87205; 88108; 88305; 89051; 93005; 93010; 94761; 96374; 99285-25; A9270; G0378; J1940; J3475